=== PATIENT | female | born 1945 | race Caucasian/White ===

== ENCOUNTER → 2023-12-02 08:03 | Outpatient (REF) | payer MEDICARE, OTHER, SELFPAY | LOC: MRI 08:03 | PROVIDERS: ATTENDING PHYSICIAN Internal Medicine Rheumatology; FAMILY PHYSICIAN Family Medicine | DX: M05.879 Other rheumatoid arthritis with rheumatoid factor of unspecified ankle and foot (principal) | CPT/HCPCS: 73721 ==

== ENCOUNTER → 2024-02-28 09:42 | Outpatient (REF) | payer MEDICARE, OTHER, SELFPAY ==
[2024-02-28 11:07] LABS: % Eosinophils 3.4 % (0-6); % Immature Granulocytes 0.1 % (0-0.5); % Lymphocytes 46.9 % (20.5-51.1); % Monocytes 12.4 % (1.7-9.3); % Neutrophils 36.2 % (42.2-75.2); Absolute Basophils 0.1 10^3/uL (0-0.2); Absolute Eosinophils 0.2 10^3/uL (0-0.7); Absolute Lymphocytes 3.3 10^3/uL (1.2-3.4); Absolute Monocytes 0.9 10^3/uL (0.1-0.6); Absolute Neutrophils 2.6 10^3/uL (1.4-6.5); Hematocrit 38.5 % (37.0-47.0); Mean Corp Hgb Conc. 33.8 g/dL (33.0-37.0); Mean Corpuscular Hgb 32.5 pg (27.0-31.0); Mean Corpuscular Volume 96.3 fL (81.0-99.0); Mean Platelet Volume 10.6 fL (7.4-10.4); Nucleated Red Blood Cells % 0 %; Platelet Count 222 10^3/uL (130-400); Red Cell Dist. Width 14.6 % (11.5-14.5); White Blood Cell Count 7.1 10^3/uL (4.8-10.8)
[2024-02-28 13:05] LABS: C-Reactive Protein < 5.00 mg/L (0.0-10.00)
[2024-02-28 13:09] LABS: ALT (SGPT) 23 U/L (0-35); AST (SGOT) 31 U/L (14-36); Albumin 4.3 g/dl (3.5-5.0); Alkaline Phosphatase 51 U/L (38-126); Blood Urea Nitrogen 17 mg/dl (7-17); Calcium 9.5 mg/dl (8.4-10.2); Carbon Dioxide 26 mmol/L (22-30); Chloride 104 mmol/L (98-107); Glucose 92 mg/dl (70-99); Sodium 136 mmol/L (135-145); Total Bilirubin 1.2 mg/dl (0.2-1.3); Total Protein 6.7 g/dl (6.3-8.2); eGFR > 60.00
== END ==
LOC: REG 09:42
PROVIDERS: ATTENDING PHYSICIAN Internal Medicine Rheumatology; FAMILY PHYSICIAN Family Medicine
DX: M05.9 Rheumatoid arthritis with rheumatoid factor, unspecified (principal); Z51.81 Encounter for therapeutic drug level monitoring
CPT/HCPCS: 36415; 80053; 85025; 86140

== ENCOUNTER → 2024-06-11 11:22 | Outpatient (REF) | payer MEDICARE, OTHER, SELFPAY ==
[2024-06-11 12:43] LABS: Hematocrit 43.7 % (37.0-47.0); Hemoglobin 14.9 g/dL (12.0-16.0); Mean Corp Hgb Conc. 34.1 g/dL (33.0-37.0); Mean Corpuscular Hgb 33.6 pg (27.0-31.0); Mean Corpuscular Volume 98.6 fL (81.0-99.0); Mean Platelet Volume 10.4 fL (7.4-10.4); Platelet Count 276 10^3/uL (130-400); Red Blood Cell Count 4.43 10^6/uL (4.20-5.40); Red Cell Dist. Width 12.8 % (11.5-14.5); White Blood Cell Count 10.7 10^3/uL (4.8-10.8)
[2024-06-11 13:19] LABS: % Basophils 0.9 % (0-2); % Eosinophils 2.5 % (0-6); % Immature Granulocytes 0.3 % (0-0.5); % Lymphocytes 45.1 % (20.5-51.1); % Monocytes 15.7 % (1.7-9.3); % Neutrophils 35.5 % (42.2-75.2); Absolute Basophils 0.1 10^3/uL (0-0.2); Absolute Eosinophils 0.3 10^3/uL (0-0.7); Absolute Lymphocytes 4.8 10^3/uL (1.2-3.4); Absolute Monocytes 1.7 10^3/uL (0.1-0.6); Absolute Neutrophils 3.8 10^3/uL (1.4-6.5); Nucleated Red Blood Cells % 0 %
[2024-06-11 13:37] LABS: ALT (SGPT) 22 U/L (0-35); AST (SGOT) 29 U/L (14-36); Albumin 4.6 g/dl (3.5-5.0); Alkaline Phosphatase 70 U/L (38-126); Blood Urea Nitrogen 21 mg/dl (7-17); Calcium 10.3 mg/dl (8.4-10.2); Carbon Dioxide 29 mmol/L (22-30); Chloride 99 mmol/L (98-107); Glucose 100 mg/dl (70-99); Potassium 5.3 mmol/L (3.5-5.1); Sodium 140 mmol/L (135-145); Total Bilirubin 0.7 mg/dl (0.2-1.3); eGFR > 60.00
[2024-06-11 13:39] LABS: C-Reactive Protein < 5.00 mg/L (0.0-10.00)
== END ==
LOC: REG 11:22
PROVIDERS: ATTENDING PHYSICIAN Internal Medicine Rheumatology; FAMILY PHYSICIAN Student in an Organized Health Care Education/Training Program
DX: M05.9 Rheumatoid arthritis with rheumatoid factor, unspecified (principal); Z51.81 Encounter for therapeutic drug level monitoring
CPT/HCPCS: 36415; 80053; 85025; 86140

== ENCOUNTER → 2024-07-04 10:20 | Outpatient (REF) | payer MEDICARE, OTHER, SELFPAY ==
[2024-07-04 11:08] LABS: Hematocrit 41.2 % (37.0-47.0); Hemoglobin 14.2 g/dL (12.0-16.0); Mean Corp Hgb Conc. 34.5 g/dL (33.0-37.0); Mean Corpuscular Hgb 33.6 pg (27.0-31.0); Mean Corpuscular Volume 97.6 fL (81.0-99.0); Platelet Count 310 10^3/uL (130-400); Red Blood Cell Count 4.22 10^6/uL (4.20-5.40); White Blood Cell Count 8.5 10^3/uL (4.8-10.8)
[2024-07-04 11:24] LABS: % Basophils 0.8 % (0-2); % Eosinophils 2.5 % (0-6); % Immature Granulocytes 0.2 % (0-0.5); % Lymphocytes 52.2 % (20.5-51.1); % Monocytes 9.5 % (1.7-9.3); % Neutrophils 34.8 % (42.2-75.2); Absolute Basophils 0.1 10^3/uL (0-0.2); Absolute Eosinophils 0.2 10^3/uL (0-0.7); Absolute Lymphocytes 4.5 10^3/uL (1.2-3.4); Absolute Monocytes 0.8 10^3/uL (0.1-0.6); Nucleated Red Blood Cells % 0 %
[2024-07-04 11:29] LABS: Erythrocyte Sed Rate 11 mm/hour (0-20)
[2024-07-04 11:48] LABS: ALT (SGPT) 60 U/L (0-35); AST (SGOT) 49 U/L (14-36); Albumin 4.6 g/dl (3.5-5.0); Alkaline Phosphatase 71 U/L (38-126); Blood Urea Nitrogen 22 mg/dl (7-17); Calcium 9.9 mg/dl (8.4-10.2); Carbon Dioxide 25 mmol/L (22-30); Chloride 100 mmol/L (98-107); Glucose 98 mg/dl (70-99); Potassium 4.5 mmol/L (3.5-5.1); Sodium 139 mmol/L (135-145); Total Protein 6.9 g/dl (6.3-8.2); eGFR > 60.00
[2024-07-04 11:57] LABS: C-Reactive Protein < 5.00 mg/L (0.0-10.00)
== END ==
LOC: REG 10:20
PROVIDERS: Internal Medicine Endocrinology, Diabetes & Metabolism; ATTENDING PHYSICIAN Specialist; FAMILY PHYSICIAN Student in an Organized Health Care Education/Training Program
DX: R19.4 Change in bowel habit (principal)
CPT/HCPCS: 36415; 80053; 84443; 85025; 85652; 86140

== ENCOUNTER → 2024-07-05 12:39 | Outpatient (REF) | payer MEDICARE, OTHER, SELFPAY | LOC: REG 12:39 | PROVIDERS: ATTENDING PHYSICIAN Specialist | DX: R19.4 Change in bowel habit (principal) | CPT/HCPCS: 83993; 87324; 87449 ==

== ENCOUNTER → 2024-07-09 06:34 | Day surgery (SDC) | payer MEDICARE, OTHER, SELFPAY | LOC: GI 06:34 | PROVIDERS: ATTENDING PHYSICIAN Specialist | DX: R19.4 Change in bowel habit (principal); K57.30 Diverticulosis of large intestine without perforation or abscess without bleeding; K51.90 Ulcerative colitis, unspecified, without complications; K52.9 Noninfective gastroenteritis and colitis, unspecified | CPT/HCPCS: 45380; 88305 ==

== ENCOUNTER → 2024-08-23 06:27 | Outpatient (REF) | payer MEDICARE, OTHER, SELFPAY | LOC: REG 06:27 | PROVIDERS: ATTENDING PHYSICIAN Specialist; FAMILY PHYSICIAN Family Medicine | DX: R19.7 Diarrhea, unspecified (principal) | CPT/HCPCS: 83993; 87045; 87046; 87324; 87328; 87329; 87427; 87449 ==

== ENCOUNTER 2024-08-24 11:43 | Emergency (ER) | payer MEDICARE, OTHER, SELFPAY ==
[2024-08-24 11:45] VITALS: BP 150/93
--- NOTE | 2024-08-24 12:21 | ED.GENMED ---
History of Present Illness
General
Chief Complaint: Head Injury
Time Seen by Provider: 08/24/24 11:52
History of Present Illness
History of Present Illness:
71-year-old female presents the emergency department for evaluation of a large laceration to the left parietal scalp, she slipped and fell into a door frame. Denies any headache or vision changes at this time. Does not take anticoagulants. Last
tetanus is unknown
Past History
Past History
ED Past Medical History: GERD and Other (RA, sarcoidosis)
ED Past Surgical History: Other
Social History
Tobacco: Former smoker
Drug: None
Personal:
Living: with family
Employment: Retired
Family History
Family History: Other (brother had gout)
Review of Systems
Review of Systems
Allergies reviewed?: Yes
All Other Systems: ROS reviewed and negative except as documented in HPI and ROS
Phy Exam
Physical Exam
Physical Exam:
GEN: Well appearing, NAD, WDWN
HEENT: Large 14 cm curvilinear laceration to the left parietal scalp, full-thickness oral mucosa moist, no scleral icterus, no nasal congestion
Cardiac: Regular rate
Lung: No respiratory distress, no tachypnea
MSK: No gross deformity or injuries
Skin: Good color, no pallor or jaundice, no rashes
Neuro: AO x3; CN II-XII grossly intact. BUE strength 5/5 in all woods, sensation intact and symmetric. BLE strength 5/5 in all woods, sensation intact and symmetric
Psych: Calm, cooperative
Course
Vital Signs
Initial and Last Documented VS:
Initial Vital Signs
Temp Pulse Resp BP Pulse Ox
97.6 F 80 16 150/93 98
08/24/24 11:45 08/24/24 11:45 08/24/24 11:45 08/24/24 11:45 08/24/24 11:45
Last Documented Vital Signs
Temp Pulse Resp BP Pulse Ox
97.6 F 80 16 150/93 98
08/24/24 11:45 08/24/24 11:45 08/24/24 11:45 08/24/24 11:45 08/24/24 11:45
Procedures
Laceration Closure
Left Scalp:
Status of Wound: clean
Size of Wound in cm: 12
Description of Wound Edges: sharp and flap-well vascularized
Preparation: cleaned with soap & water
Anesthesia: 1% Lidocaine with epi
Wound exploration: explored to base- no FB
Type of Closure: single layer closure
Skin Closure Material: skin mari
Number of sutures: 11
MDM/Problems Addressed
MDM/Problems Addressed:
Patient is neurologically intact and there is no sign of depressed skull fracture. No indication for CT of the head
*Critical Care Note
Total Time (30-74mins, 75-104mins- exclusive of procedures): Not Applicable
ED Attending Note
-
Portions of this chart may have been created with voice recognition software.� Occasional wrong word or��sound alike� substitutions may have occurred due to the inherent limitations of voice recognition software.
Discharge Plan
Departure
Patient Disposition: Home (Routine Discharge)
Date of Disposition: 08/24/24
Time of Disposition: 12:21
Patient with high blood pressure during this ER visit?: No
Discharge Problem:
Laceration of scalp
Instructions: Laceration Repair With Mari (DC)
Prescriptions:
No Action
Folic Acid 0.8 MG Tablet
0.8 mg PO DAILY Qty: 0
estradiol 1 EACH patch weekly
1 ea transdermal TH
mesalamine 800 MG tablet,delayed release (DR/EC)
1,600 mg PO TID
methotrexate sodium 2.5 MG tablet
15 mg PO MO
diclofenac sodium 75 MG tablet,delayed release (DR/EC)
75 mg PO BID
valganciclovir 450 MG tablet
900 mg PO Q12 Qty: 42 0RF
Rx Instructions:
take 2 tabs (900mg) every 12 hours x 3 weeks
pantoprazole 40 MG tablet,delayed release (DR/EC)
40 mg PO DAILY Qty: 30 0RF
Activity Restrictions/Additional Instructions:
Keep wound dry until tomorrow, then wash gently with soap and water
Staple removal in 5-7 days
Interventions
Interventions:
*Risk Screen - Suicide Last Done: 08/24/24 11:48
*Neglect/Abuse Screening Last Done: 08/24/24 11:48
*ED COVID-19 Vaccine History Last Done: 08/24/24 11:48
Discharge Date and Time
Print Language: SWEDISH
[2024-08-24 12:25] VITALS: BP 142/72
== END 2024-08-24 12:25 | disposition home or self-care (01) ==
LOC: EMR 11:43
PROVIDERS: EMERGENCY PHYSICIAN Student in an Organized Health Care Education/Training Program; FAMILY PHYSICIAN Family Medicine
DX: S01.01XA Laceration without foreign body of scalp, initial encounter (principal); W01.198A Fall on same level from slipping, tripping and stumbling with subsequent striking against other object, initial encounter; K21.9 Gastro-esophageal reflux disease without esophagitis; Z87.891 Personal history of nicotine dependence
CPT/HCPCS: 12004; 99282

== ENCOUNTER → 2024-09-13 11:46 | Outpatient (REF) | payer MEDICARE, OTHER, SELFPAY | LOC: REG 11:46 | PROVIDERS: ATTENDING PHYSICIAN Specialist; FAMILY PHYSICIAN Student in an Organized Health Care Education/Training Program | DX: R19.7 Diarrhea, unspecified (principal) | CPT/HCPCS: 83993; 87045; 87046; 87324; 87328; 87329; 87427; 87449; 89055 ==

== ENCOUNTER → 2024-10-08 14:11 | Outpatient (REF) | payer MEDICARE, OTHER, SELFPAY | LOC: REG 14:11 | PROVIDERS: ATTENDING PHYSICIAN Specialist; FAMILY PHYSICIAN Family Medicine | DX: R19.7 Diarrhea, unspecified (principal) | CPT/HCPCS: 87324; 87328; 87329; 87449 ==

== ENCOUNTER 2024-10-15 18:24 | Inpatient (IN) | payer MEDICARE, OTHER, SELFPAY ==
[2024-10-15 11:33] VITALS: BP 106/74
--- NOTE | 2024-10-15 11:39 | ED.GENMED ---
ED Provider Triage
<Antonella Fonseca PA-C - Last Filed: 10/15/24 11:43>
-
Patient seen by provider in Triage?: Seen in Triage
Attestation: A medical screening examination has been initiated by a qualified medical provider. Based on the assessment performed at this time, it has been determined that an emergent medical condition may exist and the patient has been informed
that further medical evaluation and possible additional diagnostic testing may be needed.
HPI: 79yoF here with rectal bleeding. Had two episodes of BRBPR this morning. First episode was just on the toilet paper, second episode blood was in the toilet bowl. C/o R sided abd pain. Hx of ulcerative colitis. Recently treated for C.diff and
finished abx on 10/04.
GENERAL: Alert , in no apparent distress
EYE: No visual abnormalities.
NECK: Trachea midline
ENT: No visible abnormalities.
LUNGS: No acute respiratory distress
NEUROLOGICAL: Alert and oriented
SKIN: Skin intact. No visible changes.
MUSCULOSKELETAL: Moving extremities normally
PSYCH: Normal and appropriate interaction.
This is a medical evaluation conducted in person to initiate diagnostic evaluation and provide initial therapeutics. Please see further documentation by the treating clinician.
Abdominal labs, CRP, coags, type and screen, and CT abdomen ordered.
History of Present Illness
<Antonella Fonseca PA-C - Last Filed: 10/15/24 11:43>
General
Chief Complaint: Rectal Bleeding
Time Seen by Provider: 10/15/24 14:43
<Amaury Cameron PA-C - Last Filed: 10/15/24 15:59>
General
Source: patient and records
History of Present Illness
History of Present Illness:
79-year-old female with past medical history of previous gastric ulcer presenting to the emergency department after she has been dealing with diarrhea for the last 2-1/2 months noting that she often has upwards of 10-15 episodes of watery loose
stool per day. She was at her GI office with Dr. Che today when she felt the urge to have a bowel movement, went to the bathroom and noted sara blood. She states this is the first time that she noticed any bleeding. Patient has had 4 separate
stool studies done since late June with all of these tests reportedly coming back negative although she does note she was started on an antibiotic for presumed C. difficile about 2 weeks ago which she finished but without resolution of
symptoms. Patient denies any fevers, chills, rigors and currently states she is symptom-free/pain-free. She denies any anticoagulant use. Denies any cigarettes or tobacco. No known family history of GI related issues.
Past History
<Antonella Fonseca PA-C - Last Filed: 10/15/24 11:43>
Past History
ED Past Medical History: GERD and Other (RA, sarcoidosis)
ED Past Surgical History: Other
Social History
Tobacco: Former smoker
Drug: None
Personal:
Living: with family
Employment: Retired
Family History
Family History: Other (brother had gout)
<Amaury Cameron PA-C - Last Filed: 10/15/24 15:59>
Past History
ED Past Surgical History: Cholecystectomy, Gynecological and Orthopedic
Social History
Alcohol: None
Review of Systems
<Amaury Cameron PA-C - Last Filed: 10/15/24 15:59>
Review of Systems
All Other Systems: ROS reviewed and negative except as documented in HPI and ROS
Phy Exam
<Amaury Cameron PA-C - Last Filed: 10/15/24 15:59>
Physical Exam
Physical Exam:
GENERAL: Alert , in no apparent distress
EYE: clear conjunctiva b/l
HEAD: NCAT
ENT: o/p clr, mmm.
CARDIAC: Regular rate and rhythm .
LUNGS: Clear breath sounds bilaterally, no acute respiratory distress, no wheezes/rales/rhonchi
ABDOMEN: Soft, mild generalized tenderness on palpation, no r/g, no cvat
NEUROLOGICAL: Alert and oriented
SKIN: Warm and dry, skin intact.
MUSCULOSKELETAL: No edema, well perfused.
PSYCH: Normal and appropriate interaction.
Scores
<Amaury Cameron PA-C - Last Filed: 10/15/24 15:59>
Heart Failure Risk
Heart Failure Risk Score: Not Applicable
Heart Score for Chest Pain Patients
STEMI patient?: Not applicable
Withdrawal Assessment of Alcohol
Withdrawal Assessment Completed?: Not applicable
Course
<Antonella Fonseca PA-C - Last Filed: 10/15/24 11:43>
Orders/Labs/Results
Orders:
Orders
10/15/24 11:40
CT Abd/pel W Iv And Oral Contr Urgent
Comment:
Reason For Exam: R sided abd pain, rectal bleeding
Iohexol [Omnipaque] See Protocol PO NOW STA
10/15/24 11:43
Type+Screen Urgent
Complete Blood Count/With Diff Urgent
Comprehensive Metabolic Panel Urgent
Erythrocyte Sed Rate Urgent
Comment: ADD ON
Lipase Urgent
Manual Differential Urgent
Prothrombin Time Urgent
10/15/24 14:51
Add On- LAB Urgent
Tests Added?: esr
10/15/24 15:02
0.9% Sodium Chloride 1000 ml [Nss] 1,000 ml IV BOLUS
10/15/24 15:18
ABO2 Urgent
BBK Wristband Number:
Associate notified that ABO2 has been ordered: [id number]
Date: 10/15/24
Time: 12:10
Behavioral Modification Assistant ID: [id number]
CRP [C-Reactive Protein] Urgent
Lactic Acid Q4H
Comment: CANCEL 2nd LACTIC ACID IF 1st LACTIC ACID IS LESS THAN 2
10/15/24 19:00
Lactic Acid Q4H
Comment: CANCEL 2nd LACTIC ACID IF 1st LACTIC ACID IS LESS THAN 2
Abnormal Lab Results
10/15/24
11:43
WBC 13.9 H 10^3/uL
(4.8-10.8)
MCH 31.4 H pg
(27.0-31.0)
Segmented Neutrophils 15 L %
(42-75)
Band Neutrophils 18 H %
(0-3)
Monocytes (Manual) 19 H %
(2-9)
ESR 24 H mm/hour
(0-20)
Sodium 133 L mmol/L
(135-145)
Chloride 97 L mmol/L
(98-107)
Glucose 123 H mg/dl
(70-99)
Total Protein 6.0 L g/dl
(6.3-8.2)
Albumin 3.4 L g/dl
(3.5-5.0)
10/15/24 11:43
10/15/24 11:43
Vital Signs
Initial and Last Documented VS:
Initial Vital Signs
Temp Pulse Resp BP Pulse Ox
98.1 F 99 17 106/74 95
10/15/24 11:33 10/15/24 11:33 10/15/24 11:33 10/15/24 11:33 10/15/24 11:33
Last Documented Vital Signs
Temp Pulse Resp BP Pulse Ox
98.1 F 79 18 117/54 100
10/15/24 11:33 10/15/24 15:22 10/15/24 15:22 10/15/24 15:22 10/15/24 15:22
<Amaury Cameron PA-C - Last Filed: 10/15/24 15:59>
Orders/Labs/Results
Orders:
Orders
10/15/24 11:40
CT Abd/pel W Iv And Oral Contr Urgent
Comment:
Reason For Exam: R sided abd pain, rectal bleeding
Iohexol [Omnipaque] See Protocol PO NOW STA
10/15/24 11:43
Type+Screen Urgent
Complete Blood Count/With Diff Urgent
Comprehensive Metabolic Panel Urgent
Erythrocyte Sed Rate Urgent
Comment: ADD ON
Lipase Urgent
Manual Differential Urgent
Prothrombin Time Urgent
10/15/24 14:51
Add On- LAB Urgent
Tests Added?: esr
10/15/24 15:02
0.9% Sodium Chloride 1000 ml [Nss] 1,000 ml IV BOLUS
10/15/24 15:18
ABO2 Urgent
BBK Wristband Number:
Associate notified that ABO2 has been ordered: [id number]
Date: 10/15/24
Time: 12:10
Behavioral Modification Assistant ID: [id number]
CRP [C-Reactive Protein] Urgent
Lactic Acid Q4H
Comment: CANCEL 2nd LACTIC ACID IF 1st LACTIC ACID IS LESS THAN 2
10/15/24 19:00
Lactic Acid Q4H
Comment: CANCEL 2nd LACTIC ACID IF 1st LACTIC ACID IS LESS THAN 2
Abnormal Lab Results
10/15/24
11:43
WBC 13.9 H 10^3/uL
(4.8-10.8)
MCH 31.4 H pg
(27.0-31.0)
Segmented Neutrophils 15 L %
(42-75)
Band Neutrophils 18 H %
(0-3)
Monocytes (Manual) 19 H %
(2-9)
ESR 24 H mm/hour
(0-20)
Sodium 133 L mmol/L
(135-145)
Chloride 97 L mmol/L
(98-107)
Glucose 123 H mg/dl
(70-99)
Total Protein 6.0 L g/dl
(6.3-8.2)
Albumin 3.4 L g/dl
(3.5-5.0)
10/15/24 11:43
10/15/24 11:43
Vital Signs
Initial and Last Documented VS:
Initial Vital Signs
Temp Pulse Resp BP Pulse Ox
98.1 F 99 17 106/74 95
10/15/24 11:33 10/15/24 11:33 10/15/24 11:33 10/15/24 11:33 10/15/24 11:33
Last Documented Vital Signs
Temp Pulse Resp BP Pulse Ox
98.1 F 79 18 117/54 100
10/15/24 11:33 10/15/24 15:22 10/15/24 15:22 10/15/24 15:22 10/15/24 15:22
<Aamury Cameron PA-C - Last Filed: 10/15/24 15:59>
MDM/Problems Addressed
Differential Diagnosis Includes:
Pseudomembranous colitis, ulcerative colitis, Crohn's disease, other bacterial diarrhea, given duration of illness less concern for viral gastroenteritis, electrolyte derangement
MDM/Problems Addressed:
79-year-old female presenting to the ER for evaluation of 2-1/2 months of diarrhea, symptoms not much worse however today did notice sara blood without any stool when she went to have a bowel movement. She is not on any anticoagulants. Currently
hemodynamically stable. Generalized tenderness on exam. Labs and CT were ordered from triage. Patient has a near 14,000 leukocytosis. She has a bandemia of 18%. Electrolytes are unremarkable. I reviewed patient's outpatient stool studies which
were negative for C. difficile as well as were negative on culture for Shigella and E. coli. CT results pending. Disposition pending but anticipate admission given symptoms.
<Amaury Cameron PA-C - Last Filed: 10/15/24 15:59>
*Radiology
Radiology exam reviewed: radiology read reviewed
*Pulse Oximetry
Patient hypoxic: no
*Critical Care Note
Total Time (30-74mins, 75-104mins- exclusive of procedures): Not Applicable
Data Reviewed
Review of Other/Old Records Reveals: Labs and Records
<Amaury Cameron PA-C - Last Filed: 10/15/24 15:59>
Patient Management
Discussion with other providers: Hospitalist and Laundry Presser
Escalation/DeEscalation of care consider admission/obs:
Patient CT scan ultimately shows the following:
IMPRESSION:
1. SEVERE ACUTE COLITIS in the ascending and transverse colon. Moderate acute on chronic colitis in the descending colon, sigmoid colon, and rectum. Diagnostic possibilities are (1) severe acute infectious colitis (possibly C. difficile colitis)
or (2) acute on chronic ulcerative colitis.
2. Cecal bascule without evidence for colonic obstruction.
3. Mild small bowel distention suggesting an ileus.
4. 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
5. Suspected acute infarct in the spleen.
6. Mild intrahepatic and extrahepatic biliary dilatation.
7. Previous cholecystectomy and hysterectomy.
8. 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
I reviewed these results with the patient at length and provided her with a printout of the CT report. Given these findings combined with patient's lab abnormalities will admit for further evaluation. Lactic acid ordered in addition to labs
previously sent. Will defer antibiotics to hospitalist and GI team. Hospitalist team accepts for continued evaluation and treatment.
ED Attending Note
<Antonella Fonseca PA-C - Last Filed: 10/15/24 11:43>
-
Portions of this chart may have been created with voice recognition software.� Occasional wrong word or��sound alike� substitutions may have occurred due to the inherent limitations of voice recognition software.
Discharge Plan
Departure
Patient Disposition: Admit
Date of Disposition: 10/15/24
Time of Disposition: 15:01
Presentation/result/management discussed w/ accepting MD/DO: Hospitalist
Discharge Problem:
Colitis, Splenic infarct, Infarction of kidney
Prescriptions:
No Action
methotrexate sodium 2.5 MG tablet
10 mg PO TU
diclofenac sodium 75 MG tablet,delayed release (DR/EC)
75 mg PO BID
trazodone 50 mg Tablet
50 mg PO HSPRN PRN (Reason: sleep)
valsartan-hydrochlorothiazide 80-12.5 mg Tablet
0.5 tab PO DAILY
folic acid 1 mg Tablet
1 mg PO DAILY
Interventions
Interventions:
*Risk Screen - Suicide Last Done: 10/15/24 11:35
*General Assessment Last Done: 10/15/24 11:35
*Neglect/Abuse Screening Last Done: 10/15/24 11:35
*ED COVID-19 Vaccine History Last Done: 10/15/24 11:35
[id number] Assessment Last Done: 10/15/24 15:31
ED- Cardiac Assessment Last Done: 10/15/24 15:31
ED- Pulmonary Assessment Last Done: 10/15/24 15:31
Discharge Date and Time
Print Language: [place]
[2024-10-15] MEDS: OMNIPAQUE 50 ML PO (11:49)
[2024-10-15 12:12] LABS: Hematocrit 42.5 % (37.0-47.0); Hemoglobin 14.1 g/dL (12.0-16.0); Mean Corp Hgb Conc. 33.2 g/dL (33.0-37.0); Mean Corpuscular Hgb 31.4 pg (27.0-31.0); Mean Corpuscular Volume 94.7 fL (81.0-99.0); Mean Platelet Volume 9.5 fL (7.4-10.4); Platelet Count 373 10^3/uL (130-400); Red Blood Cell Count 4.49 10^6/uL (4.20-5.40); Red Cell Dist. Width 13.2 % (11.5-14.5); White Blood Cell Count 13.9 10^3/uL (4.8-10.8)
[2024-10-15 12:20] LABS: INR 0.95
[2024-10-15 12:23] LABS: Absolute Neutrophils -Man Diff 4.5 10^3/uL (1.4-6.5); Atypical Lymphocytes 4 %; Band Neutrophils 18 % (0-3); Eosinophils 3 % (0-6); Lymphocytes 40 % (20-51); Metamyelocytes 1 % (-); Monocytes 19 % (2-9); Platelets Checked Yes; Segmented Neutrophils 15 % (42-75)
[2024-10-15 12:24] LABS: Normal RBC Morphology Yes
[2024-10-15 12:25] LABS: Total Cells Counted 100
[2024-10-15 12:28] LABS: ALT (SGPT) 15 U/L (0-35); AST (SGOT) 19 U/L (14-36); Albumin 3.4 g/dl (3.5-5.0); Alkaline Phosphatase 75 U/L (38-126); Blood Urea Nitrogen 17 mg/dl (7-17); Carbon Dioxide 29 mmol/L (22-30); Chloride 97 mmol/L (98-107); Glucose 123 mg/dl (70-99); Lipase 57 U/L (23-300); Potassium 3.8 mmol/L (3.5-5.1); Sodium 133 mmol/L (135-145); Total Bilirubin 0.7 mg/dl (0.2-1.3); eGFR > 60.00
[2024-10-15 14:14] VITALS: BP 150/69
[2024-10-15] MEDS: NSS 1000 IV (15:12)
[2024-10-15 15:22] VITALS: BP 117/54
--- NOTE | 2024-10-15 15:33 | CON.GI ---
Addendum entered and electronically signed by Ben Che MD 10/15/24 17:30:
I saw and examined the patient.
The OPERATIONS AND MAINTENANCE MANAGER or PA's note was reviewed and I agree with the note.
Comment: 79yo female known to me as outpatient and had office visit with me today, but reported rectal bleeding and was sent to ER. She has hx UC and RA doing well on Cimzia until this year. Over last several months has had diarrhea, tried on
budesonide, but she did not tolerate it with vomiting. Was put on prednisone taper. C diff was Ag positive, toxin negative, which I treated with Dificid even though this was possible colonization, since she wasn't improving on prednisone. She had
repeat C diff negative 11/08. I discussed flex sig, but she cancelled since she was dealing with tool abscess and thought that had something to do with her sx.
In ER, WBC elevated 13.9 with 18% bands. CT shows severe acute colitis in ascending/transverse colon, moderate colitis in L colon and acute infarct in L kidney and suspected infarct spleen.
REC:
NPO, abx, IVF
Check stool C diff again, and if negative start IV steroids
Also recommend anticoagulation given her severe IBD and infarct on CT, while monitoring her bleeding. If bleeding profuse, will need to stop anticoagulation
If she responds to IV steroids, I can discuss swithcing biologics as outpt. She did well with remicade and cimzia in past, so maybe Humira is a good option. Others include Entyvio (though that would not treat her RA) or Skyrizi
I would not use Rinvoq given her clot risk.
Original Note:
Consultation
-
Date/Time Consultation Requested: 10/15/24 1500
Date/Time Consultation Performed: 10/15/24- 0
Requesting Provider: Amaury Villa PA-C
Performing Provider: [place] Devries, Ben Che MD
Reason for Consultation: diarrhea, rectal bleeding
Medical History
Chief Complaint / HPI
Chief Complaint: rectal bleeding
History of Present Illness:
Pt is a 79yo with hx long standing RA on multiple medication, H pylori, skin CA, osteoporosis, GERD with ulcerative segovia colitis since 2020. She recall being on Mesalamine in past and Remicade for RA but did not tolerate with rash. She recently
has been on Cimzia but stopped about 2 months ago as was consider change on therapy. She states she began with diarrhea about 8-10 stools per day about 2 months ago. She initially was treated with steroid taper. She then completed stool cultures
neg 09/13 with c-diff ag + tox neg and pt was placed on Dificid for 10 days. Pt also admits to abx for tooth issue. She continued with symptoms repeat 10/08 was neg c-diff. She was scheduled to see Dr. Che today and noted large bloody stool and
came to ER instead of office visit. On admission she is noted with CT with severe acute colitis with concern for c-diff vs chronic UC, cecal bascule without obstruction, mild SB ileus with acute infarct of left kidney appear secondary to occlusion,
suspected acute infarct of spleen mild intra and extra hepatic biliary dilation, prior girma and hysterectomy, mod DDD. Labs notable for WBC 13,900, hbg 14,100, Na 133. No recent travel or sick contacts.
At this time patient admits to nausea without vomiting and diarrhea that was blood today. She also admits to some right lower abdominal pain. She has had about 8-10 lbs wt loss in last 2 months. She denies dysphagia, GERD, constipation or
black stools. Last colonoscopy [facility] 07/09/24 with [facility] ulcerative colitis unchanged tortuous colon. bx active colitis mild in sigmoid. Last EGD [facility] 01/2023 normal esophagus stomach and duodenum bx no metaplasia, no eosinophilic esophagitis.
Past Medical History
Past Medical History: Cancer (basal cell face) and Other (RA, HH, GERD, gastritis, osteoporosis, prior covid, ulcerative segovia colitis 2020, prior H pylori )
Social History
Tobacco: Non-Smoker
Alcohol: None
Drug: None
Personal:
Living: With Family
Employment: Retired
Family History
Family History: Other (no family hx UC or crohns )
Allergies / Home Medications
Allergy/AdvReac Type Severity Reaction Status Date / Time
infliximab Allergy Unknown Rash Verified 10/15/24 11:32
homatropine Allergy Itching Verified 10/15/24 11:32
[From Hycodan (with
homatropin)]
hydrocodone Allergy Itching Verified 10/15/24 11:32
[From Hycodan (with
homatropin)]
morphine Allergy Itching Verified 10/15/24 11:32
naproxen [From Naprosyn] Allergy Rash Verified 10/15/24 11:32
promethazine Allergy NAUSEA/VOMI Verified 10/15/24 11:32
TING
�Medication �Instructions �Recorded
diclofenac sodium 75 mg 75 mg PO BID Pain 06/02/21
tablet,delayed release
methotrexate sodium 2.5 mg tablet 10 mg PO TU Autoimmune disorder 06/02/21
folic acid 1 mg tablet 1 mg PO DAILY 10/15/24
trazodone 50 mg tablet 50 mg PO HSPRN PRN sleep 10/15/24
valsartan 80 0.5 tab PO DAILY 10/15/24
mg-hydrochlorothiazide 12.5 mg
tablet
Review of Systems
-
History Source: Patient and Family
Constitutional: Reports Weight Loss (8-10 lbs )
EENT: Reports No Symptoms
Respiratory: Reports No Symptoms
Cardiac: Reports No Symptoms
Abdomen/GI: Reports Abdominal Pain, Nausea, Diarrhea and Bloody Stools
: Reports No Symptoms
Musculoskeletal: Reports Other (chronic pain with RA)
Skin: Reports No Symptoms
Neurological: Reports No Symptoms and Weakness
Endocrine: Reports No Symptoms
Hematologic/Lymphatic: Reports Bleeding
Vital Signs
Temp Pulse Resp BP Pulse Ox
98.1 F 79 18 117/54 100
10/15/24 11:33 10/15/24 15:22 10/15/24 15:22 10/15/24 15:22 10/15/24 15:22
Physical Exam
Exam
General: Well Developed, Well Nourished and No Apparent Distress
HEENT: Normocephalic and Anicteric
Respiratory: Clear
Cardiac: Regular Rhythm
GI: Soft, Non Distended and Tender (RLQ )
Rectal: Red
Musculoskeletal: No Clubbing and No Cyanosis
Skin: Warm and Dry
Neuro: Awake, Alert and AO x 3
Psych: Calm
Results
WBC 13.9 10^3/uL (4.8-10.8) H 10/15/24 11:43
Hgb 14.1 g/dL (12.0-16.0) 10/15/24 11:43
Hct 42.5 % (37.0-47.0) 10/15/24 11:43
MCV 94.7 fL (81.0-99.0) 10/15/24 11:43
Plt Count 373 10^3/uL (130-400) 10/15/24 11:43
PT 13.0 Sec (11.4-14.6) 10/15/24 11:43
INR 0.95 10/15/24 11:43
Sodium 133 mmol/L (135-145) L 10/15/24 11:43
Potassium 3.8 mmol/L (3.5-5.1) 10/15/24 11:43
Chloride 97 mmol/L (98-107) L 10/15/24 11:43
Carbon Dioxide 29 mmol/L (22-30) 10/15/24 11:43
BUN 17 mg/dl (7-17) 10/15/24 11:43
Creatinine 0.7 mg/dL (0.6-1.0) 10/15/24 11:43
Calcium 9.0 mg/dl (8.4-10.2) 10/15/24 11:43
Total Bilirubin 0.7 mg/dl (0.2-1.3) 10/15/24 11:43
AST 19 U/L (14-36) 10/15/24 11:43
ALT 15 U/L (0-35) 10/15/24 11:43
Alkaline Phosphatase 75 U/L (38-126) 10/15/24 11:43
Lipase 57 U/L (23-300) 10/15/24 11:43
Diagnostic Image Results:
10/15/24 CT Abd/pel W Iv And Oral Contr
1. SEVERE ACUTE COLITIS in the ascending and transverse colon. Moderate acute on chronic colitis in the descending colon, sigmoid colon, and rectum. Diagnostic possibilities are (1) severe acute infectious colitis (possibly C. difficile colitis)
or (2) acute on chronic ulcerative colitis.
2. Cecal bascule without evidence for colonic obstruction.
3. Mild small bowel distention suggesting an ileus.
4. 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
5. Suspected acute infarct in the spleen.
6. Mild intrahepatic and extrahepatic biliary dilatation.
7. Previous cholecystectomy and hysterectomy.
8. 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
Prior GI Procedures:
EGD: [facility] 01/2023 normal esophagus stomach and duodenum bx no metaplasia, no eosinophilic esophagitis.
Colonoscopy: [facility] 07/09/24 with [facility] ulcerative colitis unchanged tortuous colon. bx active colitis mild in sigmoid.
Assessment / Plan
-
Pt is a 79yo with hx long standing RA on multiple medication, H pylori, skin CA, osteoporosis, GERD with ulcerative segovia colitis since 2020. She recall being on Mesalamine in past and Remicade for RA but did not tolerate with rash. She recently
has been on Cimzia but stopped about 2 months ago as was consider change on therapy. She states she began with diarrhea about 8-10 stools per day about 2 months ago. She initially was treated with steroid taper. She then completed stool cultures
neg 09/13 with c-diff ag + tox neg and pt was placed on Dificid for 10 days. Pt also admits to abx for tooth issue. She continued with symptoms repeat 10/08 was neg c-diff. She was scheduled to see Dr. Che today and noted large bloody stool and
came to ER instead of office visit. On admission she is noted with CT with severe acute colitis with concern for c-diff vs chronic UC, cecal bascule without obstruction, mild SB ileus with acute infarct of left kidney appear secondary to occlusion,
suspected acute infarct of spleen mild intra and extra hepatic biliary dilation, prior girma and hysterectomy, mod DDD. Labs notable for WBC 13,900, hbg 14,100, Na 133. No recent travel or sick contacts.
-diarrhea/bloody stool
-hx Ulcerative segovia colitis- CT iwth severe acute colitis
-cecal bascule/ileus on CT
-CT with renal and splenic infarct
-RA with chronic joint pains
other med problems:
-hx girma
-h pylori
-osteoporosis
-GERD
-reaction with remicade in past
PLAN:
etiology of diarrhea and bleeding related to UC flare, c-diff, ischemic process vs other
reviewed with hospitalist for starting antibiotics
ok for low dose Lovenox daily with close monitor for bleeding- as high risk for clot with active colitis
plan for stool studies if neg consider steroid course
if not improving consider flex
add updated hepatitis B/C and TB testing
Dr. Che considering change in therapy--cannot get Rinvoq with hx thrombosis issue, rash in past with remicade
ideally therapy to cover RA and UC-- pt remains on methotrexate
ok for clear diet
add CRP, ESR and fecal kevin
-
-
Thank you for consultation and allowing me to participate in the patient's care. Please call the early childhood education worker GI physician during the after hours with any questions or concerns.
[2024-10-15 15:42] LABS: Erythrocyte Sed Rate 24 mm/hour (0-20)
--- NOTE | 2024-10-15 16:02 | HPS.HSE ---
Addendum entered and electronically signed by Edgar Rider MD 10/15/24 17:19:
I saw and examined the patient.
The CARBIDER or PA's note was reviewed and I agree with the note.
Comment:
This note serves as an addendum to the H&P by panelbeater GIA Ira Crump
79F HX UC segovia colitis , GERD pw diarrhea/bloody stool
Acute hematochezia
- POS CT iwth severe acute colitis
- Clear
- Empiric IV LVQ and Flagyl
- stool Cx
- add CRP, ESR and fecal kevin
- trend Hgb
- GI consulted
POS CT Renal and splenic infarct
- Clear by GI for LMEH DVT Px dose
- Cannot systemic AC due to hemaochezia
HX RA with chronic joint pains
DVT Px: LMWH DVT Px dose
Full code
IP TLM
Original Note:
Family Physician
-
Family Physician: Marcos Gan
Chief Complaint
-
bloody bowel movement
History of Present Illness
Patient is 79-year-old female with past medical history significant for hypertension and rheumatoid arthritis who presented to [facility] for evaluation of consistent diarrhea for 2.5 months and a bright red bowerl moevement this morning. Patient
stated prior to leaving for scheduled GI appointment with Dr. Che this morning she went to restroom to be sure bowels were clear to go and she sat down and felt like it was just water, when she looked she described output as all bright red and no
stool present. Patient states appetite has been fair and does not at least 10 pound weight loss in last 2.5 months. She denies any fever, chills, cough, shortness of breath, chest pain, palpitations, nausea, vomiting, constipation or urinary
symptoms.
Medical History
Past Medical History
Past Medical History: Reports Other
Additional Past Medical History:
bengin hypertension
rheumatoid arthritis
Hx basal cell carcinoma
Hx ulcerative colitis
Past Surgical History: Reports Other
Additional Past Surgical History:
total vaginal hysterectomy
cholecystectomy
right hip replacement
wrist fx repair
Social History
Tobacco: Former Smoker (quit 40 years ago)
Alcohol: None
Drug: None
Personal:
Living: With Family
Employment: Retired
Family History
Family History: Not pertinent
Allergies / Home Medications
Allergies reflects when Allergies were last updated in [employer].
Home Medications with original date entered in [employer]
Allergy/Medication List:
Allergies
Allergy/AdvReac Type Severity Reaction Status Date / Time
infliximab Allergy Unknown Rash Verified 10/15/24 11:32
homatropine Allergy Itching Verified 10/15/24 11:32
[From Hycodan (with
homatropin)]
hydrocodone Allergy Itching Verified 10/15/24 11:32
[From Hycodan (with
homatropin)]
morphine Allergy Itching Verified 10/15/24 11:32
naproxen [From Naprosyn] Allergy Rash Verified 10/15/24 11:32
promethazine Allergy NAUSEA/VOMI Verified 10/15/24 11:32
TING
Home Medications
diclofenac sodium 75 mg tablet,delayed release 75 mg PO BID Pain 06/02/21
methotrexate sodium 2.5 mg tablet 10 mg PO TU Autoimmune disorder 06/02/21
folic acid 1 mg tablet 1 mg PO DAILY 10/15/24
trazodone 50 mg tablet 50 mg PO HSPRN PRN sleep 10/15/24
valsartan 80 mg-hydrochlorothiazide 12.5 mg tablet 0.5 tab PO DAILY 10/15/24
Review of Systems
-
History Source: Patient
Constitutional: Reports No Symptoms
EENT: Reports No Symptoms
Respiratory: Reports No Symptoms
Cardiac: Reports No Symptoms
Abdomen/GI: Reports Diarrhea (for 2.5 months ) and Bloody Stools (1x today, bright red)
: Reports No Symptoms
Musculoskeletal: Reports No Symptoms
Skin: Reports No Symptoms
Neurological: Reports No Symptoms
Endocrine: Reports No Symptoms
Hematologic/Lymphatic: Reports No Symptoms
Psych: Reports No Symptoms
Physical Exam
Vital Signs
Vital Signs
Temp Pulse Resp BP Pulse Ox
98.1 F 79 18 117/54 100
10/15/24 11:33 10/15/24 15:22 10/15/24 15:22 10/15/24 15:22 10/15/24 15:22
Physical Exam
General: Well Developed, Well Nourished, No Apparent Distress, Comfortable and Conversant
HEENT: NormoCephalic, Moist mucous membranes, Atraumatic, PERRLA, [place] Conjunctivae, Ears Appear Normal and Hearing Impaired
Respiratory: Clear and Non Labored Respirations
Cardiac: S1/S2 and Regular Rhythm; No Murmur, Rub or Gallop
Breast: Deferred by me
GI: Soft, Non Tender, Non Distended and Normal Bowel Sounds; No Organomegaly
Rectal: Deferred by Provider
Genito-urinary: Deferred by me
Musculoskeletal: No Clubbing, No Cyanosis and No Edema
Skin: Warm and IV/Catheter Site; No Rash
Neuro: Awake, Alert, AO x 3 and Nonfocal/grossly intact
Hematologic/Lymphatic: No Lymphadenopathy
Psych: Calm and Intact Judgment/Insight
Laboratory Results
-
10/15/24 11:43
10/15/24 11:43
Laboratory Results
PT 13.0 Sec (11.4-14.6) 10/15/24 11:43
INR 0.95 10/15/24 11:43
Total Bilirubin 0.7 mg/dl (0.2-1.3) 10/15/24 11:43
AST 19 U/L (14-36) 10/15/24 11:43
ALT 15 U/L (0-35) 10/15/24 11:43
Alkaline Phosphatase 75 U/L (38-126) 10/15/24 11:43
Lipase 57 U/L (23-300) 10/15/24 11:43
Data Reviewed
-
CT Scan: Report Reviewed by me
Lab Data: Labs Reviewed by me
Impression/Plan
-
IMPRESSION/PLAN:
#Severe acute colitis
Abd/Pelvis CT: 1. SEVERE ACUTE COLITIS in the ascending and transverse colon. Moderate acute on chronic colitis in the descending colon, sigmoid colon, and rectum. Diagnostic possibilities are (1) severe acute infectious
colitis (possibly C. difficile colitis) or (2) acute on chronic ulcerative colitis.
2. Cecal bascule without evidence for colonic obstruction.
3. Mild small bowel distention suggesting an ileus.
4. 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
5. Suspected acute infarct in the spleen.
6. Mild intrahepatic and extrahepatic biliary dilatation.
7. Previous cholecystectomy and hysterectomy.
8. 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
- Admit to
- GI consult
- IV Levaquin and Flagyl
- C. Diff and stool culture pending
- consider steroids if C. Diff negative
#renal infarct of left kidney
Abd/Pelvis CT: 4. 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
- start Lovenox Sq
#GI Bleed
diarrhea x2.5 months with sara red blood with sensation of BM this morning
WBC 14.1
- monitor H/H
#benign hypertension
- continue valsartan-hydrochlorothiazide
#rheumatoid arthritis
- continue methotrexate
Code Status: Full Code
DVT Prophylaxis: Lovenox Sq
[2024-10-15 16:13] LABS: Lactic Acid 1.3 mmol/L (0.7-2.0)
[2024-10-15 19:26] VITALS: BMI 23.3
[2024-10-15 19:37] VITALS: BP 123/77
--- NOTE | 2024-10-15 20:00 | PTCARENOTE ---
Received patient from ED via stretcher accompanied by ED PCT, patient ambulated self to room without difficulty. Oriented to room/facility, call [place] within reach, VSS, care ongoing.
[2024-10-15] MEDS: FLAGYL 500 MG 100 IV (21:55)
[2024-10-15] MEDS: LEVAQUIN 150 IV (21:55)
[2024-10-15] MEDS: LOVENOX 40 MG SC (21:55)
[2024-10-15 23:13] VITALS: BP 124/71
[2024-10-16 03:24] VITALS: BP 139/72
[2024-10-16] MEDS: FLAGYL 500 MG 100 IV ×3 (04:04→21:00)
--- NOTE | 2024-10-16 07:34 | W.PN.HOSP.TC ---
Addendum entered and electronically signed by Lana Deluna MD 10/16/24 14:33:
I personally performed a history and physical exam of the patient and discussed management with the resident. I reviewed the resident's note and agree with the documented findings and plan of care HPI/CC.
A/P:
# Acute Hematochezia
# Severe acute colitis
# Possible Ulcerative Colitis flare
CT AP noted severe acute colitis in ascending and transverse colon, acute infarct in the lateral cortex of the lower pole of left kidney, and possibly spleen.
GI on board, input appreciated. Defer steroid to GI
C. difficile negative, Follow stool studies
Continue IV Levaquin and Metronidazole
Continue clears diet
Pt follows with GI Dr. Che outpatient
# Essential Hypertension
Continue home med
# Rheumatoid Arthritis
continue methotrexate
# Incidental findings of L Renal infarct and possible splenic infarct
Check echo
Card CS for A fib work up
Full Code
DVT ppx: Lovenox subq
Original Note:
Today's Communication/Plan
-
Continue IV antibiotics
clear diet
Assessment / Plan
Assessment / Plan
Impression: Patient is 79-year-old female with past medical history significant for hypertension and rheumatoid arthritis who presented to ED for evaluation of consistent diarrhea for 2.5 months and a bright red bowel movement this morning.
Assessment/Plan:
#Acute Hematochezia- Severe acute colitis
#Ulcerative Colitis
-CT abdomen showed: Severe acute colitis, acute infarct in the lateral cortex of the lower pole of left kidney, Mild small bowel distention suggesting an ileus
-GI consulted, input appreciated
- Continue clears diet
- Continue IV Levaquin and Metronidazole
- Stool studies pending
-Follows with outpatient
-GI to start IV steroids
#Essential Hypertension
-Continue home med
#Rheumatoid Arthritis
- continue methotrexate
#Renal infarct of left kidney
- Abd/Pelvis CT: acute infarct in the lateral cortex of the lower pole of the left kidney which appears to be secondary to left renal artery occlusion.
- Continue Lovenox Sq
Full Code
DVT ppx: lovenox subq
Anticipated Discharge: 24 - 48 hours
Subjective/Interval History
-
Date of Service: October 16, 2024
Patient denies any symptoms of severe nausea or vomiting today.
Objective Data
-
Labs:
Laboratory Results
10/16/24
07:34
WBC Pending
Hgb Pending
Hct Pending
Plt Count Pending
Sodium Pending
Potassium Pending
Chloride Pending
Carbon Dioxide Pending
BUN Pending
Creatinine Pending
Glucose Pending
Calcium Pending
Vital Signs:
Vital Signs
Temp Pulse Resp BP Pulse Ox
97.5 F 78 16 139/72 99
10/16/24 03:24 10/16/24 03:24 10/16/24 03:24 10/16/24 03:24 10/16/24 03:24
I&O
10/15/24 10/16/24 10/17/24
06:59 06:59 06:59
Intake Total 350 / 350
Balance 350 / 350
Review of Systems
-
All other systems: Reviewed and negative
Physical Exam
-
General: No Apparent Distress
HEENT: Normocephalic
Respiratory: Clear to Auscultation
Cardiac: Regular Rhythm and S1/S2; Negative Murmur
GI: Soft, Nontender, Nondistended and Normal Bowel Sounds
Musculoskeletal: No Edema
Skin: Warm and Dry
Neuro: Awake, Alert and Oriented
Psych: Calm
[2024-10-16 07:52] LABS: Hematocrit 37.4 % (37.0-47.0); Mean Corp Hgb Conc. 34.8 g/dL (33.0-37.0); Mean Corpuscular Hgb 32.3 pg (27.0-31.0); Mean Platelet Volume 9.5 fL (7.4-10.4); Platelet Count 268 10^3/uL (130-400); Red Blood Cell Count 4.02 10^6/uL (4.20-5.40); Red Cell Dist. Width 12.9 % (11.5-14.5); White Blood Cell Count 10.2 10^3/uL (4.8-10.8)
[2024-10-16 08:21] LABS: Blood Urea Nitrogen 11 mg/dl (7-17); Calcium 8.3 mg/dl (8.4-10.2); Carbon Dioxide 25 mmol/L (22-30); Chloride 101 mmol/L (98-107); Estimated Creatinine Clearance 58 ml/min; Glucose 91 mg/dl (70-99); Sodium 134 mmol/L (135-145); eGFR > 60.00
[2024-10-16] MEDS: FOLVITE 1 MG PO (09:16)
[2024-10-16] MEDS: DIOVAN 40 MG PO (09:17)
[2024-10-16] MEDS: ORETIC 6.25 MG PO (09:17)
[2024-10-16 12:00] VITALS: BP 121/75
--- NOTE | 2024-10-16 13:02 | CM ---
Patient seen at bedside with present. Patient states that she lives with in a 2 story home but remains on first floor. Patient states that her PCP is Dr. Thompson and that she uses the [facility]. Patient stated that she has no DME
that she uses at this time. Patient plan is for discharge home with no needs. CM will continue to follow for discharge planning needs.
Plan; home with ; watch for VN needs.
--- NOTE | 2024-10-16 14:52 | W.PN.GI.CBS2 ---
Addendum entered and electronically signed by Cate Fragoso MD 10/16/24 15:54:
I saw and examined the patient.
The RN ONCOLOGY RESEARCH or PA's note was reviewed and I agree with the note.
Comment: Patient continues to have significant diarrhea, so far C. difficile negative, stool cultures pending but moderate white cells noted in the stool.
No fevers or chills.
Agree with adding Solu-Medrol IV 20 mg every 8 hours.
For flexible sigmoidoscopy tomorrow.
Okay for low residue and low lactose diet for now but n.p.o. past midnight.
Outpatient follow-up with Dr. Che, plan is to change biologic as Cimzia is not effective anymore.
Continue low-dose Lovenox for suspected acute infarct of spleen and left kidney
Original Note:
Today's Communication / Plan
-
etiology of diarrhea and bleeding related likely to active UC flare, in differential ischemic process with concern for renal/splenic thrombosis, infectious source with c-diff neg vs other
cont abx
CRP 55.4, ESR 24, fecal kevin pending
cont Lovenox as no further bleeding-- hbg stable at 13
c-diff, Giardia, crypto neg other cx pending
plan for flex in AM to rule out CMV and assess status of IBD
add IV Solumedrol 20mg Q 8 hours
hepatitis B/C and TB testing pending as plan for change in chronic IBD therapy
Dr. Che considering change in chronic therapy --cannot get Rinvoq with hx thrombosis issue, rash in past with remicade
ideally therapy to cover RA and UC-- pt remains on methotrexate prior to admission
will allow low residue diet with supplement and NPO in AM for flex
appreciate medical input with noted thrombosis
updated Dr. Deluna from hospitalist team
family updated at bedside
Assessment / Plan
-
Pt is a 79yo with hx long standing RA on multiple medication, H pylori, skin CA, osteoporosis, GERD with ulcerative segovia colitis since 2020. She recall being on Mesalamine in past and Remicade for RA but did not tolerate with rash. She recently
has been on Cimzia but stopped about 2 months ago as was consider change on therapy. She states she began with diarrhea about 8-10 stools per day about 2 months ago. She initially was treated with steroid taper. She then completed stool cultures
neg 09/13 with c-diff ag + tox neg and pt was placed on Dificid for 10 days. Pt also admits to abx for tooth issue. She continued with symptoms repeat 10/08 was neg c-diff. She was scheduled to see Dr. Che today and noted large bloody stool and
came to ER instead of office visit. On admission she is noted with CT with severe acute colitis with concern for c-diff vs chronic UC, cecal bascule without obstruction, mild SB ileus with acute infarct of left kidney appear secondary to occlusion,
suspected acute infarct of spleen mild intra and extra hepatic biliary dilation, prior girma and hysterectomy, mod DDD. Labs notable for WBC 13,900, hbg 14,100, Na 133. No recent travel or sick contacts.
-diarrhea/bloody stool
-hx Ulcerative segovia colitis- CT with severe acute colitis
-cecal bascule/ileus on CT
-CT with renal and splenic infarct
-RA with chronic joint pains
other med problems:
-hx girma
-h pylori
-osteoporosis
-GERD
-reaction with Remicade in past
PLAN:
etiology of diarrhea and bleeding related likely to active UC flare, in differential ischemic process with concern for renal/splenic thrombosis, infectious source with c-diff neg vs other
cont abx
CRP 55.4, ESR 24, fecal kevin pending
cont Lovenox as no further bleeding-- hbg stable at 13
c-diff, Giardia, crypto neg other cx pending
plan for flex in AM to rule out CMV and assess status of IBD
add IV Solumedrol 20mg Q 8 hours
hepatitis B/C and TB testing pending as plan for change in chronic IBD therapy
Dr. Che considering change in chronic therapy --cannot get Rinvoq with hx thrombosis issue, rash in past with remicade
ideally therapy to cover RA and UC-- pt remains on methotrexate prior to admission
will allow low residue diet with supplement and NPO in AM for flex
appreciate medical input with noted thrombosis
updated Dr. Deluna from hospitalist team
Subjective
Subjective
Date of Service: October 16, 2024
still with frequent stool non bloody
Objective
Data Reviewed
Laboratory Data:
Laboratory Results
10/16/24 07:34
10/16/24 07:34
Laboratory Results
PT 13.0 Sec (11.4-14.6) 10/15/24 11:43
INR 0.95 10/15/24 11:43
Total Bilirubin 0.7 mg/dl (0.2-1.3) 10/15/24 11:43
AST 19 U/L (14-36) 10/15/24 11:43
ALT 15 U/L (0-35) 10/15/24 11:43
Alkaline Phosphatase 75 U/L (38-126) 10/15/24 11:43
Lipase 57 U/L (23-300) 10/15/24 11:43
Vital Signs and I&O:
Vital Signs
Temp Pulse Resp BP Pulse Ox
98.8 F 81 18 121/75 97
10/16/24 12:00 10/16/24 12:00 10/16/24 12:00 10/16/24 12:00 10/16/24 12:00
I&O
10/15/24 10/16/24 10/17/24
06:59 06:59 06:59
Intake Total 350 / 350
Balance 350 / 350
Physical Exam
Physical Exam
HEENT: Anicteric and Moist mucous membranes
Cardiology: Normal Sinus Rhythm
Pulmonary: Clear
GI: Soft, Non Distended and Tender (mild )
Rectal: Other (per chart brown gelatinous stools )
Extremities: No Edema
Neuro: Non Focal
[2024-10-16 16:00] VITALS: BP 152/88
[2024-10-16] MEDS: LOVENOX 40 MG SC (16:12)
[2024-10-16] MEDS: SOLU-MEDROL PF 20 MG IV ×2 (16:13→23:38)
--- NOTE | 2024-10-16 16:31 | CON.CAR ---
Addendum entered and electronically signed by Shawna Manuel MD 10/16/24 17:21:
I saw and examined the patient.
The Upholstery Technician's note was reviewed and I agree with the note.
Comment: Bella is a 79-year-old female with past medical history of ulcerative colitis, hypertension, rheumatoid arthritis, very small perimembranous VSD noted on echo since 2018, brief, nonsustained episodes of atrial tachycardia noted on
supervisor covering and lining over 2 weeks in January 2023, GERD who presents this admission with diarrhea, abdominal cramping and bright red blood per rectum found to have severe acute colitis with plan for GI workup and flex sigmoidoscopy tomorrow. On her
abdominal CT she was noted to have a left renal infarct and a possible splenic infarct and therefore cardiology was consulted given concern for a possible cardioembolic source. Patient denies any active or recent cardiac complaints. Of note,
patient underwent a 2-week monitor in 2022 given concern for possible paroxysmal atrial flutter however no clear atrial fibrillation or atrial flutter was noted on the 2-week monitor and therefore patient has not been on long-term anticoagulation.
No prior strokes or mini strokes.
Vital signs and lab work reviewed. On exam, patient is extremely frustrated but denies any acute complaints. No acute distress, awake, alert and oriented x 3, at bedside, regular rate, normal S1 and S2, no murmurs, rubs or gallops, no
carotid bruit with normal carotid upstrokes and no JVD, lungs are clear to auscultation bilaterally, abdomen is soft, mildly tender to palpation diffusely, hyperactive bowel sounds, warm extremities without significant edema.
Recommendations:
1. No clear atrial fibrillation or flutter has been identified as a potential cardioembolic source. Given concerns on CT for left renal infarct and a possible splenic infarct, I would be reasonable to initiate full anticoagulation if safe from a
GI standpoint. Would initiate IV heparin either later today versus tomorrow as recommended by GI.
2. Echocardiogram with no acute changes compared to prior echo from 2022. Of note a very small perimembranous VSD is noted by color-flow Doppler and appears to be present since 2018. I doubt this would be contributing in any way.
3. Without clear cardioembolic source, depending on results of the GI workup, may be reasonable to consider longer-term monitoring while patient remains on anticoagulation to rule out atrial fibrillation/flutter warranting long-term full
anticoagulation and possible outpatient transesophageal echocardiogram. Briefly discussed this with the patient who is not agreeable for any workup inpatient and is demanding to go home as soon as possible. Despite redirection and trying multiple
times to explain the concerns, she keeps repeating and frustration ' there is nothing wrong with my heart' and ' I did not come to the hospital for my heart'
at bedside relayed understanding of discussions above.
Shanwa Manuel MD, [facility], [facility]
Original Note:
Consultation
Consultation Request
Date/Time Consultation Performed: 10/16/24
Requesting Provider: Dr. Deluna
Performing Provider: Alcira Tse PA-C for Dr. Manuel
Reason for Consultation: spleen and renal infarcts, eval for cardioembolic source
Medical History
-
Chief Complaint: BRBPR
History of Present Illness:
Patient is a 79-year-old female with past medical history of ulcerative colitis, hypertension, rheumatoid arthritis, 'tiny' perimembranous VSD by prior echo in 2019 who reports having issues with diarrhea for the last several months. Her
medications have been transitioned around. She reports she has remained with some diarrhea, abdominal cramping, and had bright red blood per rectum over the last several days and was referred by GI to the ER for admission. She reports last bloody
BM was yesterday. Hemoglobin is stable at 13. Cardiology consulted as patient noted by imaging to have severe colitis as well as a left renal infarct and splenic infarct with concern for cardioembolic source. Transthoracic echo pending at this
time. Denies chest pain, shortness of breath, palpitations. There was previously question of her having paroxysmal atrial flutter, however she underwent 2-week supervisor covering and lining which showed several episodes of brief atrial tachycardia, however no
clear A-fib or a flutter and therefore anticoagulation was not initiated.
PMH:
Ulcerative colitis
GERD
Atrial tachycardia, brief by supervisor covering and lining 01/2023
Hypertension
Rheumatoid arthritis
'Tiny' perimembranous VSD by echo in 2018
Past Medical History
Past Medical History: Other (in HPI)
Social History
Tobacco: Non-Smoker
Alcohol: None
Personal:
Living: With Family
Family History
Family History: CAD and Diabetes
Allergies / Home Medications
Allergy/AdvReac Type Severity Reaction Status Date / Time
infliximab Allergy Unknown Rash Verified 10/15/24 11:32
homatropine Allergy Itching Verified 10/15/24 11:32
[From Hycodan (with
homatropin)]
hydrocodone Allergy Itching Verified 10/15/24 11:32
[From Hycodan (with
homatropin)]
morphine Allergy Itching Verified 10/15/24 11:32
naproxen [From Naprosyn] Allergy Rash Verified 10/15/24 11:32
promethazine Allergy NAUSEA/VOMI Verified 10/15/24 11:32
TING
�Medication �Instructions �Recorded �Confirmed �Type
diclofenac sodium 75 mg 75 mg PO BID Pain 06/02/21 10/15/24 History
tablet,delayed release
methotrexate sodium 2.5 mg tablet 10 mg PO TU Autoimmune disorder 06/02/21 10/15/24 History
folic acid 1 mg tablet 1 mg PO DAILY 10/15/24 10/15/24 History
trazodone 50 mg tablet 50 mg PO HSPRN PRN sleep 10/15/24 10/15/24 History
valsartan 80 0.5 tab PO DAILY 10/15/24 10/15/24 History
mg-hydrochlorothiazide 12.5 mg
tablet
Review of Systems
-
History Source: Patient
All other systems: Negative unless noted
Physical Exam
Vital Signs
Temp Pulse Resp BP Pulse Ox
98.8 F 81 18 121/75 97
10/16/24 12:00 10/16/24 12:00 10/16/24 12:00 10/16/24 12:00 10/16/24 12:00
Lab Results
10/16/24 07:34
10/16/24 07:34
Physical Exam
General: No Apparent Distress and Comfortable
HEENT: Normocephalic, Anicteric and Moist Mucous Membranes
Respiratory: Clear and Non Labored Respirations
Cardiac: S1/S2, Regular Rhythm and Murmur
GI: Soft, Non Tender, Non Distended and Normal Bowel Sounds
Musculoskeletal: No Clubbing, No Cyanosis and No Edema
Skin: Warm and Dry
Neuro: AO x 3
Impression / Plan
-
Primary Undercollar Baster: Dr. KIMMIE Murray
Assessment:
Presentation with BRBPR
Severe colitis by CTAP
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
Ulcerative colitis
GERD
Atrial tachycardia, brief by supervisor covering and lining 01/2023
Hypertension
Rheumatoid arthritis
'Tiny' perimembranous VSD by echo in 2019
ECHO 04/12/23: EF 60 to 65%, mild concentric LVH, tiny perimembranous ventricular septal defect, MAC, mild MR, aortic sclerosis, trace AR, normal right heart with normal PAP
Plan:
-Patient presented with bright red blood per rectum and found to have severe colitis by CT of the abdomen pelvis. She has known ulcerative colitis. Treatment per GI, and plan for flex sig in a.m.
-Cardiology consulted as patient noted to have left renal and splenic infarcts by CT of the abdomen and pelvis. There is concern for cardioembolic source.
-Last echo from 04/2023 with results as above. Repeat pending
-In sinus rhythm thus far on review of telemetry. Check EKG. she did have a outpatient monitor 01/2023 which showed multiple brief episodes of atrial tachycardia however no clear A-fib or a flutter
-May need longer-term cardiac monitoring moving forward to assist with determining duration of anticoagulation therapy
-Discussed with GI. Difficult situation as with GI/rectal bleeding as well as indication for anticoagulation. They are okay with trial of IV heparin no bolus. follow H&H. will hold IV heparin as of 6AM in prep for flex sig.
Data Reviewed
-
CT Scan: Report Reviewed by me
Medical Tests (Nuc Med, Echo etc): Report Reviewed by me
Labs: Labs Reviewed by me
Old Records: Reviewed
[2024-10-16] MEDS: HEPARIN 25000 UNITS/250 ML IV (18:34)
[2024-10-16 18:58] LABS: APTT 40.7 Sec (23.4-35.0)
[2024-10-16 19:46] VITALS: BP 139/88
[2024-10-16] MEDS: LEVAQUIN 150 IV (22:13)
[2024-10-16 23:35] VITALS: BP 114/86
[2024-10-17] VITALS (7 sets, daily range): BP systolic 106–138; BP diastolic 57–88; PULSE 84
[2024-10-17 01:47] LABS: APTT 63.5 Sec (23.4-35.0)
[2024-10-17] MEDS: FLAGYL 500 MG 100 IV (04:04)
--- NOTE | 2024-10-17 07:34 | W.PN.HOSP.TC ---
Addendum entered and electronically signed by Lana Deluna MD 10/17/24 11:04:
I personally performed a history and physical exam of the patient and discussed management with the resident. I reviewed the resident's note and agree with the documented findings and plan of care HPI/CC.
A/P:
# Acute Hematochezia
# Severe acute colitis
# Ulcerative Colitis flare
CT AP noted severe acute colitis in ascending and transverse colon, acute infarct in the lateral cortex of the lower pole of left kidney, and possibly spleen.
s/p Flex sig 10/17, noted Ulcerative colitis.
Follow pathology results.
IV steroids to prednisone 40mg po daily.
Cont Low residue and low lactose diet per GI
Pt still on empiric IV Levaquin and Metronidazole, will check with GI if OK to stop
Outpatient followup with Dr. Che in 4 weeks.
# Essential Hypertension
Continue home med
# Rheumatoid Arthritis
continue methotrexate
# Incidental findings of L Renal infarct and possible splenic infarct. ?paroxysmal A fib?
Echo showed EF 60-65%. Tiny ventricular septal defects may be present
Check BL LE US due to possible VSD.
Card on board for A fib eval and OAC recc
Full Code
DVT ppx: heparin drip started by card now on hold, OAC TBD
Original Note:
Today's Communication/Plan
-
flex sig procedure today
continue IV steroids
continue IV antibiotics
Assessment / Plan
Assessment / Plan
Impression: Patient is 79-year-old female with past medical history significant for hypertension and rheumatoid arthritis who presented to ED for evaluation of consistent diarrhea for 2.5 months and a bright red bowel movement this morning.
Assessment/Plan:
#Acute Hematochezia- Severe acute colitis
#Ulcerative Colitis
-CT abdomen showed: Severe acute colitis, acute infarct in the lateral cortex of the lower pole of left kidney, Mild small bowel distention suggesting an ileus
-GI consulted, input appreciated
- Continue IV Levaquin and Metronidazole
- Stool studies pending
-Follows with outpatient
-Iv steroids initiated (pt had visual hallucinations)
-NPO until flex sig today
#Essential Hypertension
-Continue home med
#Rheumatoid Arthritis
- continue methotrexate
# Incidental findings of L Renal infarct and possible splenic infarct
- Abd/Pelvis CT: acute infarct in the lateral cortex of the lower pole of the left kidney which appears to be secondary to left renal artery occlusion.
-Cardiology consulted, input appreciated
-echo:EF 60-65%, Tiny perimembranous ventricular septal defects may be present on color flow Doppler, suggested on prior echo
-Continue Lovenox Sq; may change anticoagulation to IV hep as per cardiology/GI
Full Code
DVT ppx: lovenox subq
Anticipated Discharge: 24 - 48 hours
Subjective/Interval History
-
Date of Service: October 17, 2024
Patient states that she has been having hallucinations, sees 'bird flying in room'.
Objective Data
-
Labs:
Laboratory Results
10/17/24 10/17/24 10/17/24
01:23 06:00 08:00
WBC Pending
Hgb Pending
Hct Pending
Plt Count Pending
APTT 63.5 H Pending
Sodium Pending
Potassium Pending
Chloride Pending
Carbon Dioxide Pending
BUN Pending
Creatinine Pending
Glucose Pending
Calcium Pending
Vital Signs:
Vital Signs
Temp Pulse Resp BP Pulse Ox
97.5 F 76 16 138/88 99
10/17/24 03:45 10/17/24 03:45 10/17/24 03:45 10/17/24 03:45 10/17/24 03:45
I&O
10/16/24 10/17/24 10/18/24
06:59 06:59 06:59
Intake Total 350 / 350 970 / 970
Balance 350 / 350 970 / 970
Review of Systems
-
All other systems: Reviewed and negative
Physical Exam
-
General: No Apparent Distress
HEENT: Normocephalic
Respiratory: Clear to Auscultation
Cardiac: Regular Rhythm and S1/S2; Negative Murmur
GI: Soft, Nontender and Nondistended
Musculoskeletal: No Edema
Skin: Warm and Dry
Neuro: Awake, Alert and Oriented
Psych: Calm
[2024-10-17] MEDS: DIOVAN 40 MG PO (08:04)
[2024-10-17] MEDS: FOLVITE 1 MG PO (08:05)
[2024-10-17] MEDS: ORETIC 6.25 MG PO (08:05)
[2024-10-17] MEDS: SOLU-MEDROL PF 20 MG IV (08:05)
[2024-10-17 08:07] LABS: % Basophils 0.4 % (0-2); % Immature Granulocytes 0.7 % (0-0.5); % Lymphocytes 23.9 % (20.5-51.1); % Monocytes 5.7 % (1.7-9.3); % Neutrophils 69.3 % (42.2-75.2); Absolute Basophils 0.1 10^3/uL (0-0.2); Absolute Immature Granulocytes 0.1 10^3/uL (0-0.05); Absolute Lymphocytes 2.9 10^3/uL (1.2-3.4); Absolute Monocytes 0.7 10^3/uL (0.1-0.6); Absolute Neutrophils 8.3 10^3/uL (1.4-6.5); Hematocrit 36.9 % (37.0-47.0); Mean Corp Hgb Conc. 35.2 g/dL (33.0-37.0); Mean Corpuscular Hgb 32.5 pg (27.0-31.0); Mean Corpuscular Volume 92.3 fL (81.0-99.0); Mean Platelet Volume 9.4 fL (7.4-10.4); Nucleated Red Blood Cells % 0 %; Platelet Count 284 10^3/uL (130-400); Red Cell Dist. Width 12.8 % (11.5-14.5); White Blood Cell Count 11.9 10^3/uL (4.8-10.8)
[2024-10-17 08:20] LABS: APTT 38.3 Sec (23.4-35.0)
[2024-10-17 08:54] LABS: Blood Urea Nitrogen 10 mg/dl (7-17); Calcium 8.6 mg/dl (8.4-10.2); Carbon Dioxide 23 mmol/L (22-30); Chloride 100 mmol/L (98-107); Estimated Creatinine Clearance 50 ml/min; Glucose 131 mg/dl (70-99); Potassium 3.6 mmol/L (3.5-5.1); Sodium 133 mmol/L (135-145); eGFR > 60.00
--- NOTE | 2024-10-17 08:55 | CM ---
Addendum entered by Nirmala Castellanos RN 10/17/24 10:50:
IMM on chart. Copy left with pt at bedside.
Original Note:
Reviewed the chart notes. Patient for flexible sigmoidoscopy today. CM continues to be available to patient/family and is monitoring medical plan for needs at discharge.
Plan: Discharge to home when medically stable. No needs anticipated at this time.
--- NOTE | 2024-10-17 11:30 | W.PN.CARDCBS ---
Addendum entered and electronically signed by Arturo Murray MD 10/17/24 12:17:
79-year-old woman who presented with hematochezia related to colitis on CT scan. Known history of ulcerative colitis. Evidence of left renal and splenic infarct by CT scan of abdomen and pelvis. Prior history of atrial tachycardia monitor in
2022. Currently on heparin. Currently without complaints, Sigmoidoscopy performed earlier today
PMH: Ulcerative colitis, GERD, brief atrial tachycardia, hypertension, rheumatoid arthritis and reported small perimembranous VSD
Allergies, outpatient meds reviewed
Current meds: Folic acid, valsartan 40 mg a day, hydrochlorothiazide 6.25 mg a day, IV heparin currently on hold, and prednisone 40 mg daily
107/76, pulse 76, weight is 55.8 kg, no distress, head neck exam unremarkable, lungs are clear, cardiac exam very soft systolic murmur, abdomen benign, extremities without clubbing cyanosis or edema, pulses intact
EKG: Sinus rhythm, PACs, cannot exclude lateral TX
Echo: EF 60-65%, very small VSD may be present, no significant valve abnormality
Hemoglobin 13, sodium 133, BUN/creatinine 10 and 0.7
Impression:
Hematochezia/ulcerative colitis
History of atrial tachycardia
Small splenic and renal infarcts suggesting of cardioembolic source
Possible tiny perimembranous VSD
Plan:
Resume heparin when okay with GI
Switch to DOAC in a.m. if okay with GI
Outpatient monitor for 2 weeks
We will arrange for outpatient follow-up. Could consider transesophageal echo at that time.
Original Note:
Today's Communication / Plan
-
follow on tele
resume IV heparin @3. plan to transition to DOAC in AM
OP cardiac monitoring and consideration for OP SANRDINE to rule out cardiac source for emboli
Impression / Plan
-
Primary Media Consultant: Dr. KIMMIE Murray
Assessment:
Presentation with BRBPR
Severe colitis by CTAP
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
Ulcerative colitis
GERD
Atrial tachycardia, brief by brazing furnace operator 01/2023
Hypertension
Rheumatoid arthritis
'Tiny' perimembranous VSD by echo in 2018
ECHO 04/12/23: EF 60 to 65%, mild concentric LVH, tiny perimembranous ventricular septal defect, MAC, mild MR, aortic sclerosis, trace AR, normal right heart with normal PAP
ECHO 10/16/24: EF 60 to 65%, tiny perimembranous VSD, stable compared to prior echo, no significant valvular abnormalities
Plan:
-Patient presented with bright red blood per rectum and found to have severe colitis by CT of the abdomen pelvis. She has known ulcerative colitis.
-s/p flex sig 10/17 without clear etiology of bleeding
-she was noted to have left renal and splenic infarcts by CT of the abdomen and pelvis. There is concern for cardioembolic source.
-she was started on IV heparin. resume 4 hours post flex sig as per GI recs. plan to transition to DOAC in AM if tolerating heparin
-She remains in sinus rhythm/sinus tach thus far on review of telemetry overnight. she did have a outpatient monitor 01/2023 which showed multiple brief episodes of atrial tachycardia however no clear A-fib or a flutter. Would consider for 2-week
Bardy monitor to be placed prior to discharge 10/18 to assist with determining duration of anticoagulation therapy as well as consideration for OP SANDRINE
-will arrange OP cardiac follow up
-d/w nursing. d/w patient and at bedside
Progress Note - Media Consultant
Subjective
Date of Service: October 17, 2024
feels well this AM. no palpitations. reports some hallucinations on IV steroids overnight
Objective
Labs:
10/17/24 07:55
10/17/24 07:55
Labs
Hgb 13.0 g/dL (12.0-16.0) 10/17/24 07:55
Hct 36.9 % (37.0-47.0) L 10/17/24 07:55
Plt Count 284 10^3/uL (130-400) 10/17/24 07:55
PT 13.0 Sec (11.4-14.6) 10/15/24 11:43
INR 0.95 10/15/24 11:43
APTT 38.3 Sec (23.4-35.0) H 10/17/24 07:55
Sodium 133 mmol/L (135-145) L 10/17/24 07:55
Potassium 3.6 mmol/L (3.5-5.1) 10/17/24 07:55
BUN 10 mg/dl (7-17) 10/17/24 07:55
Creatinine 0.7 mg/dL (0.6-1.0) 10/17/24 07:55
Glucose 131 mg/dl (70-99) H 10/17/24 07:55
Vital Signs and I&O:
Vital Signs
Temp Pulse Resp BP Pulse Ox
97.3 F 76 17 107/76 99
10/17/24 11:22 10/17/24 11:22 10/17/24 11:22 10/17/24 11:22 10/17/24 11:22
Vital Signs
Temp Pulse Resp BP Pulse Ox
97.3 F 76 17 107/76 99
10/17/24 11:22 10/17/24 11:22 10/17/24 11:22 10/17/24 11:22 10/17/24 11:22
Intake & Output
10/15/24 10/16/24 10/17/24 10/18/24
07:59 07:59 07:59 07:59
Intake Total 350 / 350 970 / 970
Balance 350 / 350 970 / 970
Physical Exam
Physical Exam
GEN: No distress, awake, alert, oriented x3
HEENT: supple, anicteric, mmm, eomi
LUNGS: CTA B/L, no wheezes/rales
CV: Reg, S1/S2, no murmur
ABD: soft, BS+, NT/ND
EXT: No cyanosis, clubbing, edema
NEURO: Gross non-focal
SKIN: Warm, pink, dry. No rash
--- NOTE | 2024-10-17 15:31 | PTOTSP ---
Patient independent with bed mobility, transfers, and ambulation. No skilled PT needs, will sign off.
[2024-10-17 15:44] LABS: APTT 33.2 Sec (23.4-35.0)
[2024-10-17] MEDS: HEPARIN 25000 UNITS/250 ML IV (16:03)
--- NOTE | 2024-10-17 17:44 | PTCARENOTE ---
Pt had flex/sig this morning - showed ulcerative colitis that is unchanged from previous exams. Heparin resumed 4 hours post procedure at 1600. Pt c/o hallucinations r/t IV steroids. Steroids switched to PO.
[2024-10-17 19:52] LABS: Hepatitis B Surface Antigen Negative (Negative)
[2024-10-17 20:11] LABS: Hepatitis B Surface Antibody Negative; Hepatitis C Antibody Negative (Negative)
[2024-10-17 20:12] LABS: Hepatitis B Core Ab, Total Negative (Negative)
[2024-10-17 22:45] LABS: APTT 35.2 Sec (23.4-35.0)
[2024-10-18 03:41] VITALS: BP 143/71
[2024-10-18 06:04] LABS: APTT 67.4 Sec (23.4-35.0)
--- NOTE | 2024-10-18 07:21 | W.PN.HOSP.TC ---
Addendum entered and electronically signed by Lana Deluna MD 10/18/24 22:02:
total DC time 38 min
Addendum entered and electronically signed by Lana Deluna MD 10/18/24 13:30:
I personally performed a history and physical exam of the patient and discussed management with the resident. I reviewed the resident's note and agree with the documented findings and plan of care HPI/CC.
A/P:
# Acute Hematochezia 2/2 acute colitis from Ulcerative Colitis flare
CT AP noted severe acute colitis in ascending and transverse colon, acute infarct in the lateral cortex of the lower pole of left kidney, and possibly spleen.
s/p Flex sig 10/17, noted Ulcerative colitis.
Follow pathology results outpatient.
IV steroids -> prednisone 40mg po daily -> Budesonide 9mg until seen by GI outpatient
Off empiric Abx IV Levaquin and Metronidazole
Outpatient followup with Dr. Che in 4 weeks.
# Essential Hypertension
Continue home med
# Rheumatoid Arthritis
continue methotrexate
# Incidental findings of L Renal infarct and possible splenic infarct. ?paroxysmal A fib?
Echo showed EF 60-65%. Tiny ventricular septal defects may be present
BL LE US neg for DVT (checked due to possible VSD noted in echo).
Card on board, recc OAC and Eliquis 5 mg twice daily started
Full Code
DVT ppx: Eliquis 5 mg twice daily started
Original Note:
Today's Communication/Plan
-
Initiated budesonide
Initiated Eliquis
Dispo pending home today
Assessment / Plan
Assessment / Plan
Impression: Patient is 79-year-old female with past medical history significant for hypertension and rheumatoid arthritis who presented to ED for evaluation of consistent diarrhea for 2.5 months and a bright red bowel movement this morning.
Assessment/Plan:
#Acute Hematochezia- Severe acute colitis
#Ulcerative Colitis
-CT abdomen showed: Severe acute colitis, acute infarct in the lateral cortex of the lower pole of left kidney, Mild small bowel distention suggesting an ileus
-GI consulted, input appreciated
- Continue IV Levaquin and Metronidazole
- Stool studies pending
-Follows with outpatient
-IV steroids discontinued, initiated budesonide as per GI
-Flex, done 10/17
-Dispo Home pending today, with outpatient GI follow-up
#Essential Hypertension
-Continue home med
#Rheumatoid Arthritis
- continue methotrexate
# Incidental findings of L Renal infarct and possible splenic infarct
- Abd/Pelvis CT: acute infarct in the lateral cortex of the lower pole of the left kidney which appears to be secondary to left renal artery occlusion.
-Cardiology consulted, input appreciated
-echo:EF 60-65%, Tiny perimembranous ventricular septal defects may be present on color flow Doppler, suggested on prior echo
-IV heparin was resumed after christine sigmoidoscopy
-Transition from heparin to DOAC today Eliquis 5 mg twice daily as per cardiology
� Follow-up with cardiology outpatient
Full Code
DVT ppx: lovenox subq
Anticipated Discharge: Today
Subjective/Interval History
-
Date of Service: October 18, 2024
Patient states that she feels fine today and has no acute concerns such as vomiting or nausea.
Objective Data
-
Labs:
Laboratory Results
10/17/24 10/18/24 10/18/24
22:24 05:30 06:00
WBC Pending
Hgb Pending
Hct Pending
Plt Count Pending
APTT 35.2 H 67.4 H
Sodium Pending
Potassium Pending
Chloride Pending
Carbon Dioxide Pending
BUN Pending
Creatinine Pending
Glucose Pending
Calcium Pending
10/18/24
13:15
WBC
Hgb
Hct
Plt Count
APTT Pending
Sodium
Potassium
Chloride
Carbon Dioxide
BUN
Creatinine
Glucose
Calcium
Vital Signs:
Vital Signs
Temp Pulse Resp BP Pulse Ox
97.7 F 70 16 143/71 98
10/18/24 03:41 10/18/24 03:41 10/18/24 03:41 10/18/24 03:41 10/18/24 03:41
I&O
10/17/24 10/18/24 10/19/24
06:59 06:59 06:59
Intake Total 970 / 970 1440 / 1440
Balance 970 / 970 1440 / 1440
Review of Systems
-
All other systems: Reviewed and negative
Physical Exam
-
General: No Apparent Distress
HEENT: Normocephalic
Respiratory: Clear to Auscultation
Cardiac: Regular Rhythm and S1/S2
GI: Soft, Nontender and Nondistended
Musculoskeletal: No Edema
Skin: Warm and Dry
Neuro: Awake, Alert and Oriented
Psych: Calm
[2024-10-18 07:43] VITALS: BP 132/72
[2024-10-18] MEDS: ORETIC 6.25 MG PO (08:21)
[2024-10-18] MEDS: DIOVAN 40 MG PO (08:21)
[2024-10-18] MEDS: FOLVITE 1 MG PO (08:22)
[2024-10-18] MEDS: DELTASONE 40 MG PO (08:22)
[2024-10-18 08:26] LABS: Hematocrit 36.6 % (37.0-47.0); Hemoglobin 12.5 g/dL (12.0-16.0); Mean Corp Hgb Conc. 34.2 g/dL (33.0-37.0); Mean Corpuscular Hgb 32.3 pg (27.0-31.0); Mean Corpuscular Volume 94.6 fL (81.0-99.0); Mean Platelet Volume 9.8 fL (7.4-10.4); Platelet Count 298 10^3/uL (130-400); Red Blood Cell Count 3.87 10^6/uL (4.20-5.40); Red Cell Dist. Width 13.2 % (11.5-14.5); White Blood Cell Count 21.2 10^3/uL (4.8-10.8)
[2024-10-18] MEDS: ELIQUIS 5 MG PO (08:28)
--- NOTE | 2024-10-18 08:47 | W.PN.GI.CBS2 ---
Today's Communication / Plan
-
Transition to DOAC. D/c prednisone and change to Budesonide 9mg. Path pending, okay for d/c without patient f/u with Dr. Che
Assessment / Plan
-
Bella Mehta is a 79 y.o. female with past medical history of UC and RA on Cimizia and MTX admitted with intractable diarrhea. Over last several months has had diarrhea, tried on budesonide, but she did not tolerate it with vomiting. Was put on
prednisone taper. C diff was Ag positive, toxin negative, which I treated with Dificid even though this was possible colonization, since she wasn't improving on prednisone. She had repeat C diff negative 11/08. I discussed flex sig, but she
cancelled since she was dealing with tool abscess and thought that had something to do with her sx.
In ER, WBC elevated 13.9 with 18% bands. CT shows severe acute colitis in ascending/transverse colon, moderate colitis in L colon and acute infarct in L kidney and suspected infarct spleen.
Flexible sigmoidoscopy 10/15/2024: Inflammation characterized by erythema and loss of vascularity was found in a continuous and circumferential pattern from the rectum to the descending colon, Logan score 1 and unchanged compared to prior examinations.
Biopsies taken. A few small mouth diverticula were found in the sigmoid colon and descending colon.
Symptoms overall improving, reports formed stool overnight. Endoscopic exam was overall unimpressive, especially given findings on CT exam, suspect microscopic/lymphocytic colitis, biopsies still pending. Endorses hallucinations on prednisone, will
switch to Budesonide 9mg daily and have her follow-up with Dr. Che as an outpatient to taper.
-Tolerating low residue diet without issue
-Change to Budesonide 9mg daily
-OP f/u with Dr. Che to discuss biopsies/if biologic agent needs to be changed
-okay to transition lovenox to DOAC for findings of small splenic and renal infarcts, afib?
-OP f/u with cardiology in 2 weeks
Subjective
Subjective
Date of Service: October 18, 2024
Patient overall feels much better today, states her stool is becoming more formed, would very much like to be discharged today as her friend this week and she would like to go to the tomorrow. She underwent flexible sigmoidoscopy
yesterday with findings of mild inflammation throughout the colon, overall unchanged from prior exam. There is a large discordance between endoscopic findings on yesterday's exam and radiologic findings. She does state that she experienced
hallucinations with prednisone yesterday.
Objective
Data Reviewed
Laboratory Data:
Laboratory Results
10/18/24 08:02
Laboratory Results
PT 13.0 Sec (11.4-14.6) 10/15/24 11:43
INR 0.95 10/15/24 11:43
APTT Cancelled 10/18/24 13:15
Total Bilirubin 0.7 mg/dl (0.2-1.3) 10/15/24 11:43
AST 19 U/L (14-36) 10/15/24 11:43
ALT 15 U/L (0-35) 10/15/24 11:43
Alkaline Phosphatase 75 U/L (38-126) 10/15/24 11:43
Lipase 57 U/L (23-300) 10/15/24 11:43
Vital Signs and I&O:
Vital Signs
Temp Pulse Resp BP Pulse Ox
98.0 F 72 18 132/72 98
10/18/24 07:43 10/18/24 08:21 10/18/24 07:43 10/18/24 08:21 10/18/24 07:43
I&O
10/17/24 10/18/24 10/19/24
06:59 06:59 06:59
Intake Total 970 / 970 1440 / 1440 11.5 / 11.5
Balance 970 / 970 1440 / 1440 11.5 / 11.5
Physical Exam
Physical Exam
HEENT: Anicteric and Moist mucous membranes
GI: Soft, Non Distended, Non Tender and Normal Bowel Sounds
[2024-10-18 08:53] LABS: Blood Urea Nitrogen 17 mg/dl (7-17); Calcium 8.4 mg/dl (8.4-10.2); Carbon Dioxide 25 mmol/L (22-30); Chloride 105 mmol/L (98-107); Estimated Creatinine Clearance 50 ml/min; Glucose 101 mg/dl (70-99); Sodium 137 mmol/L (135-145); eGFR > 60.00
--- NOTE | 2024-10-18 09:00 | PTOTSP ---
chart reviewed, spoke with pt. pt reports she is going home today and is capable of doing ADLs, functional transfers, ambulation with no assistance. pt declined need for OT evaluation. will sign off per pt's request.
--- NOTE | 2024-10-18 09:06 | W.PN.CARDCBS ---
Addendum entered and electronically signed by Arturo Murray MD 10/18/24 09:43:
Would discharge on valsartan and hydrochlorothiazide as on admission. Please check basic metabolic panel in 1 week.
Addendum entered and electronically signed by Arturo Murray MD 10/18/24 09:41:
She feels well offers no complaints
PMH/PSH/SH/FH: Reviewed
Allergies/meds: Reviewed
132/72, pulse 72, respirate 18, afebrile, sats 98%
Hemoglobin today is 12.5
Potassium is 3
132/72, pulse 72, head like exam unremarkable, lungs are clear cardiac exam is within normal limits abdomen and extremities benign
Impression: See below
Plan:
She appears stable at present. Supplement potassium. Has been on heparin, okay to transition to Eliquis 5 mg twice daily.
We will apply a 2-week monitor at the time of discharge and arrange for follow-up to the office. We can determine need for transesophageal echo at that time. No objections to discharge, call if problems.
Original Note:
Today's Communication / Plan
-
for 2 week Bardy monitor.
transitioned to eliquis 5mg BID
OP cardiac follow up arranged
Impression / Plan
-
Primary Farm Assistant: Dr. KIMMIE Murray
Assessment:
Presentation with BRBPR
Severe colitis by CTAP
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
Ulcerative colitis
GERD
Atrial tachycardia, brief by pvc monitor 01/2023
Hypertension
Rheumatoid arthritis
'Tiny' perimembranous VSD by echo in 2018
ECHO 04/12/23: EF 60 to 65%, mild concentric LVH, tiny perimembranous ventricular septal defect, MAC, mild MR, aortic sclerosis, trace AR, normal right heart with normal PAP
ECHO 10/16/24: EF 60 to 65%, tiny perimembranous VSD, stable compared to prior echo, no significant valvular abnormalities
Plan:
-Patient presented with bright red blood per rectum and found to have severe colitis by CT of the abdomen pelvis. She has known ulcerative colitis. s/p flex sig 10/17 without clear etiology of bleeding
-she was noted to have left renal and splenic infarcts by CT of the abdomen and pelvis. There is concern for cardioembolic source.
-she is tolerating IV heparin without noted recurrent BRBPR. transition to eliquis 5mg BID based on age <80 and Cr <1.5. hgb 12.5 on 10/18
-She remains in sinus rhythm on review of telemetry overnight. she did have a outpatient monitor 01/2023 which showed multiple brief episodes of atrial tachycardia however no clear A-fib or a flutter. Will place 2-week Bardy monitor prior to
discharge 10/18 to assist with determining duration of anticoagulation therapy as well as consideration for OP SANDRINE
-OP cardiac follow up arranged
-ok for DC from cardiac standpoint
-will plan to sign off
-d/w nursing
Progress Note - Farm Assistant
Subjective
Date of Service: October 18, 2024
denies CP, SOB, palpitations, abd pain, bloody BMs. does report continued diarrhea
Objective
Labs:
10/18/24 08:02
10/18/24 08:02
Labs
Hgb 12.5 g/dL (12.0-16.0) 10/18/24 08:02
Hct 36.6 % (37.0-47.0) L 10/18/24 08:02
Plt Count 298 10^3/uL (130-400) 10/18/24 08:02
PT 13.0 Sec (11.4-14.6) 10/15/24 11:43
INR 0.95 10/15/24 11:43
APTT Cancelled 10/18/24 13:15
Sodium 137 mmol/L (135-145) 10/18/24 08:02
Potassium 3.0 mmol/L (3.5-5.1) L 10/18/24 08:02
BUN 17 mg/dl (7-17) 10/18/24 08:02
Creatinine 0.7 mg/dL (0.6-1.0) 10/18/24 08:02
Glucose 101 mg/dl (70-99) H 10/18/24 08:02
Vital Signs and I&O:
Vital Signs
Temp Pulse Resp BP Pulse Ox
98.0 F 72 18 132/72 98
10/18/24 07:43 10/18/24 08:21 10/18/24 07:43 10/18/24 08:21 10/18/24 07:43
Vital Signs
Temp Pulse Resp BP Pulse Ox
98.0 F 72 18 132/72 98
10/18/24 07:43 10/18/24 08:21 10/18/24 07:43 10/18/24 08:21 10/18/24 07:43
Intake & Output
10/16/24 10/17/24 10/18/24 10/19/24
07:59 07:59 07:59 07:59
Intake Total 350 / 350 970 / 970 1440 / 1440 11.5 / 11.5
Balance 350 / 350 970 / 970 1440 / 1440 11.5 / 11.5
Physical Exam
Physical Exam
GEN: No distress, awake, alert, oriented x3
HEENT: supple, anicteric, mmm, eomi
LUNGS: CTA B/L, no wheezes/rales
CV: Reg, S1/S2, no murmur
ABD: soft, BS+, NT/ND
EXT: No cyanosis, clubbing, edema
NEURO: Gross non-focal
SKIN: Warm, pink, dry. No rash
[2024-10-18] MEDS: ENTOCORT EC 9 MG PO (09:33)
[2024-10-18] MEDS: KCL 40 MEQ PO (09:58)
[2024-10-18 11:22] VITALS: BP 142/68
--- NOTE | 2024-10-18 11:54 | W.DCSUMMARY ---
Documented by User: Brandie Thomas MD, Resident 10/18/24 15:43
Discharge Summary
Discharge Data
Date of Admission: 10/15/24
Date of Discharge: 10/18/24
-
Pending Results: No
Hospital Course
Discharging Physician : ,
Disposition : Home
Primary care physician : Marcos Gan
Principal Discharge diagnosis : Acute hematochezia/severe acute colitis/Ulcerative colitis flare
Chronic Discharge diagnosis : Essential hypertension
Chronic Rheumatoid arthritis
Incidental findings of Left Renal infarct and splenic infarct- possible paroxysmal A fib pending workup outpatient
Hospital Course : Patient is 79-year-old female with past medical history significant for hypertension and rheumatoid arthritis who presented to ED for evaluation of consistent diarrhea for 2.5 months and a bright red bowel movement. Patient had
CT abdomen was done which showed severe acute colitis, acute infarct in the lateral cortex of the lower pole of left kidney and splenic infarct. Gastroenterology was consulted, empiric antibiotics of IV Levaquin and Flagyl were started and patient
was maintained on a clears diet. She was started on IV steroids and was scheduled for flexible sigmoidoscopy with results leading to suspecting microscopic/lymphocytic colitis with biopsies still pending. Patient's diet was advanced and she
tolerated well. Patient endorsed hallucinations on prednisone and therefore was switched to desonide 9 mg daily and will follow-up with GI Dr. Che as outpatient to taper.
Due to incidental findings of infarct in left kidney and suspected spleen infarct, cardiology was consulted for atrial fibrillation evaluation and possible cardioembolic source. She was started on IV heparin post flex sigmoidoscopy and then
transition to oral anticoagulation as per cardiology recommendations. She was transition to Eliquis. She remained in sinus rhythm/sinus tachycardia on review of telemetry. Patient will follow-up with cardiology in 2 weeks for placement of monitor
for arrhythmia and further management.
Patient's other chronic comorbidities were stable and remained on home medications.
Important imaging findings :
10/15/2024 CT abdomen:
1. SEVERE ACUTE COLITIS in the ascending and transverse colon. Moderate acute on chronic colitis in the descending colon, sigmoid colon, and rectum. Diagnostic possibilities are (1) severe acute infectious colitis (possibly C. difficile colitis)
or (2) acute on chronic ulcerative colitis.
2. Cecal bascule without evidence for colonic obstruction.
3. Mild small bowel distention suggesting an ileus.
4. 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
5. Suspected acute infarct in the spleen.
6. Mild intrahepatic and extrahepatic biliary dilatation.
7. Previous cholecystectomy and hysterectomy.
8. 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
10/17/2024 peripheral vascular ultrasound lower extremities: No evidence of DVT
Procedure findings :
10/17/2024 flexible sigmoidoscopy:Ulcerative colitis. Inflammation was found from the
rectum to the descending colon. This was graded as
Logan Score 1 (mild disease), unchanged compared to
previous examinations. Biopsied.
Discharge Plan
-
Patient Disposition: Home (Routine Discharge)
Discharge Diagnosis/Procedures: Acute hematochezia/severe acute colitis/Ulcerative colitis flare
Essential hypertension
Chronic Rheumatoid arthritis
Incidental findings of Left Renal infarct and splenic infarct- possible paroxysmal A fib pending workup outpatient
Condition: Fair
Diet: Low Sodium
Activity: As tolerated
Driving Restrictions: As prior to admission
Blood Work: Check BMP in 1 week with Primary care physician
Others Tests: 2 week rn cardiac rehab to be placed prior to discharge
Referrals:
Roxanna Urbano PA-C [Specified Professional Personl] - 11/12/24 12:40 pm (You have a cardiology follow-up appointment at the [place] office with Dr. Murray's physician surgery assistant, Roxanna. Please call with questions)
Marcos Gan, DO [Family Provider] - in one week
Prescriptions:
New
budesonide 3 mg Capsule,Delayed,Extend.Release
9 mg PO DAILY 30 Days Qty: 90 0RF
Eliquis 5 mg Tablet
5 mg PO BID 30 Days Qty: 60 0RF
Continued
methotrexate sodium 2.5 MG tablet
10 mg PO TU
diclofenac sodium 75 MG tablet,delayed release (DR/EC)
75 mg PO BID
trazodone 50 mg Tablet
50 mg PO HSPRN PRN (Reason: sleep)
valsartan-hydrochlorothiazide 80-12.5 mg Tablet
0.5 tab PO DAILY
folic acid 1 mg Tablet
1 mg PO DAILY
Discharge Orders:
Discharge Patient (As Directed); Ordered 10/18/24
Ordered By: Brandie Thomas
Discharge Date and Time
Discharge Date/Time: 10/18/24 13:21
Print Language: SPANISH

Documented by User: Lana Deluna MD 10/18/24 22:01
Discharge Summary
Discharge Data
Date of Admission: 10/15/24
Date of Discharge: 10/18/24
Hospital Course
Discharging Physician : Dr.Kasarapu Familia
Disposition : Home
Primary care physician : Marcos Gan
Principal Discharge diagnosis : Acute hematochezia/severe acute colitis/Ulcerative colitis flare
Chronic Discharge diagnosis : Essential hypertension
Chronic Rheumatoid arthritis
Incidental findings of Left Renal infarct and splenic infarct- possible paroxysmal A fib pending workup outpatient
Hospital Course : Patient is 79-year-old female with past medical history significant for hypertension and rheumatoid arthritis who presented to ED for evaluation of persistent diarrhea new bright red bowel movement. Patient had CT abdomen done
which showed severe acute colitis which was felt likely due to acute on chronic ulcerative colitis. She was started on IV steroids but became confused so IV steroid was changed to PO. She was discharged with budesonide 9 mg and was instructed to
continue until further directed by her GI doctor.
She underwent flexible sigmoidoscopy with biopsy during this hospital stay.
Of note, her CT AP noted incidentally acute infarct in the lateral cortex of the lower pole of left kidney and splenic infarct. Cardiology was consulted for this for atrial fibrillation evaluation. She was started on IV heparin which was
transitioned to oral anticoagulation Eliquis per cardiology.
Patient can follow-up with cardiology in 2 weeks for monitor placement for arrhythmia eval.
Patient's other chronic comorbidities were stable.
Important imaging findings :
10/15/2024 CT abdomen:
1. SEVERE ACUTE COLITIS in the ascending and transverse colon. Moderate acute on chronic colitis in the descending colon, sigmoid colon, and rectum. Diagnostic possibilities are (1) severe acute infectious colitis (possibly C. difficile colitis)
or (2) acute on chronic ulcerative colitis.
2. Cecal bascule without evidence for colonic obstruction.
3. Mild small bowel distention suggesting an ileus.
4. 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
5. Suspected acute infarct in the spleen.
6. Mild intrahepatic and extrahepatic biliary dilatation.
7. Previous cholecystectomy and hysterectomy.
8. 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
10/17/2024 peripheral vascular ultrasound lower extremities: No evidence of DVT
Procedure findings :
10/17/2024 flexible sigmoidoscopy: Ulcerative colitis. Inflammation was found from the rectum to the descending colon.
Discharge Plan
-
Patient Disposition: Home (Routine Discharge)
Discharge Diagnosis/Procedures: Acute hematochezia/severe acute colitis/Ulcerative colitis flare
Essential hypertension
Chronic Rheumatoid arthritis
Incidental findings of Left Renal infarct and splenic infarct- possible paroxysmal A fib pending workup outpatient
Condition: Fair
Diet: Low Sodium
Activity: As tolerated
Driving Restrictions: As prior to admission
Blood Work: Check BMP in 1 week with Primary care physician
Others Tests: 2 week rn cardiac rehab to be placed prior to discharge
Referrals:
Roxanna Urbano PA-C [Specified Professional Personl] - 11/12/24 12:40 pm (You have a cardiology follow-up appointment at the [place] office with Dr. Murray's physician surgery assistant, Roxanna. Please call with questions)
Marcos Gan, DO [Family Provider] - in one week
Prescriptions:
New
budesonide 3 mg Capsule,Delayed,Extend.Release
9 mg PO DAILY 30 Days Qty: 90 0RF
Eliquis 5 mg Tablet
5 mg PO BID 30 Days Qty: 60 0RF
Continued
methotrexate sodium 2.5 MG tablet
10 mg PO TU
diclofenac sodium 75 MG tablet,delayed release (DR/EC)
75 mg PO BID
trazodone 50 mg Tablet
50 mg PO HSPRN PRN (Reason: sleep)
valsartan-hydrochlorothiazide 80-12.5 mg Tablet
0.5 tab PO DAILY
folic acid 1 mg Tablet
1 mg PO DAILY
Discharge Orders:
Discharge Patient (As Directed); Ordered 10/18/24
Ordered By: Brandie Thomas
Discharge Date and Time
Discharge Date/Time: 10/18/24 13:21
Print Language: SPANISH
[2024-10-18 17:01] LABS: Quantiferon Mitogen minus NIL 9.91 IU/mL; Quantiferon NIL 0.09 IU/mL; Quantiferon Plus TB1 minus NIL 0.01 IU/mL (<=0.34); Quantiferon TB Gold Plus Negative (Negative)
[2024-10-19 10:01] LABS: Cytomegalovirus by PCR Detected
[2024-10-19 10:17] LABS: HSV 1 Subtype by PCR Not Detected; HSV 2 Subtype by PCR Not Detected; Herpes Simplex Source Tissue
[2024-10-20 22:08] LABS: Calprotectin, Fecal 926 ug/g (<=49)
== END 2024-10-18 13:21 | disposition home or self-care (01) | DRG 378 ==
LOC: 1 ACUTE 18:24
PROVIDERS: Internal Medicine Gastroenterology; Nurse Practitioner Adult Health; Nurse Practitioner Family; Physician Assistant; Physician Assistant Medical; Student in an Organized Health Care Education/Training Program; ADMITTING PHYSICIAN Internal Medicine; ATTENDING PHYSICIAN Internal Medicine; EMERGENCY PHYSICIAN Emergency Medicine; FAMILY PHYSICIAN Family Medicine; OTHER PHYSICIAN Internal Medicine Interventional Cardiology; OTHER PHYSICIAN Specialist
PROC: 0DBN8ZX Excision of Sigmoid Colon, Via Natural or Artificial Opening Endoscopic, Diagnostic (ICD-10-PCS; 2024-10-17)
DX: K92.1 Melena (principal); K51.911 Ulcerative colitis, unspecified with rectal bleeding; K56.7 Ileus, unspecified; N28.0 Ischemia and infarction of kidney; Z87.891 Personal history of nicotine dependence; D73.5 Infarction of spleen; I10 Essential (primary) hypertension; M06.9 Rheumatoid arthritis, unspecified; I48.0 Paroxysmal atrial fibrillation; K21.9 Gastro-esophageal reflux disease without esophagitis; K57.30 Diverticulosis of large intestine without perforation or abscess without bleeding
CPT/HCPCS: 88305; 74177; 80048; 80053; 83605; 83690; 83993; 85025; 85027; 85610; 85652; 85730; 86140; 86480; 86704; 86705; 86706; 86803; 86850; 86900; 86901; 87045; 87046; 87324; 87328; 87329; 87340; 87427; 87449; 87496; 87529; 89055; 93005; 93306; 93970; 96360; 97161; 99285; Q9967

== ENCOUNTER → 2024-11-01 12:18 | Outpatient (REF) | payer MEDICARE, OTHER, SELFPAY ==
[2024-11-01 13:15] LABS: % Basophils 0.8 % (0-2); % Eosinophils 1.9 % (0-6); % Immature Granulocytes 0.3 % (0-0.5); % Lymphocytes 44.6 % (20.5-51.1); % Monocytes 4.5 % (1.7-9.3); % Neutrophils 47.9 % (42.2-75.2); Absolute Basophils 0.1 10^3/uL (0-0.2); Absolute Eosinophils 0.2 10^3/uL (0-0.7); Absolute Lymphocytes 4.3 10^3/uL (1.2-3.4); Absolute Monocytes 0.4 10^3/uL (0.1-0.6); Absolute Neutrophils 4.6 10^3/uL (1.4-6.5); Hematocrit 37.6 % (37.0-47.0); Hemoglobin 12.4 g/dL (12.0-16.0); Mean Corpuscular Hgb 32.1 pg (27.0-31.0); Mean Corpuscular Volume 97.4 fL (81.0-99.0); Mean Platelet Volume 9.9 fL (7.4-10.4); Nucleated Red Blood Cells % 0 %; Platelet Count 402 10^3/uL (130-400); Red Blood Cell Count 3.86 10^6/uL (4.20-5.40); Red Cell Dist. Width 14.5 % (11.5-14.5); White Blood Cell Count 9.6 10^3/uL (4.8-10.8)
== END ==
LOC: REG 12:18
PROVIDERS: ATTENDING PHYSICIAN Student in an Organized Health Care Education/Training Program; FAMILY PHYSICIAN Family Medicine
DX: B25.9 Cytomegaloviral disease, unspecified (principal)
CPT/HCPCS: 36415; 85025; 87497

== ENCOUNTER → 2024-11-05 15:03 | Outpatient (REF) | payer MEDICARE, OTHER, SELFPAY ==
[2024-11-05 16:04] LABS: ALT (SGPT) 17 U/L (0-35); AST (SGOT) 21 U/L (14-36); Alkaline Phosphatase 64 U/L (38-126); Blood Urea Nitrogen 21 mg/dl (7-17); Calcium 9.6 mg/dl (8.4-10.2); Carbon Dioxide 28 mmol/L (22-30); Chloride 100 mmol/L (98-107); Glucose 121 mg/dl (70-99); Potassium 4.7 mmol/L (3.5-5.1); Sodium 135 mmol/L (135-145); Total Bilirubin 0.4 mg/dl (0.2-1.3); Total Protein 6.5 g/dl (6.3-8.2); eGFR > 60.00
[2024-11-05 16:07] LABS: Hematocrit 36.5 % (37.0-47.0); Hemoglobin 12.3 g/dL (12.0-16.0); Mean Corp Hgb Conc. 33.7 g/dL (33.0-37.0); Mean Corpuscular Hgb 32.6 pg (27.0-31.0); Mean Corpuscular Volume 96.8 fL (81.0-99.0); Mean Platelet Volume 9.6 fL (7.4-10.4); Platelet Count 334 10^3/uL (130-400); Red Blood Cell Count 3.77 10^6/uL (4.20-5.40); Red Cell Dist. Width 15.1 % (11.5-14.5); White Blood Cell Count 9.6 10^3/uL (4.8-10.8)
[2024-11-05 16:32] LABS: % Eosinophils 4.1 % (0-6); % Immature Granulocytes 0.3 % (0-0.5); % Lymphocytes 48.6 % (20.5-51.1); % Monocytes 2.1 % (1.7-9.3); % Neutrophils 43.9 % (42.2-75.2); Absolute Basophils 0.1 10^3/uL (0-0.2); Absolute Eosinophils 0.4 10^3/uL (0-0.7); Absolute Lymphocytes 4.7 10^3/uL (1.2-3.4); Absolute Monocytes 0.2 10^3/uL (0.1-0.6); Absolute Neutrophils 4.2 10^3/uL (1.4-6.5); Nucleated Red Blood Cells % 0 %
[2024-11-08 06:06] LABS: CMV Qnt NAAT Plasma Log IU/mL Not Detected log IU/mL; CMV Quant NAAT Plasma Interp Not Detected (Not Detected); CMV Quant by NAAT Plasma IU/mL Not Detected
== END ==
LOC: REG 15:03
PROVIDERS: ATTENDING PHYSICIAN Student in an Organized Health Care Education/Training Program; FAMILY PHYSICIAN Family Medicine
DX: B25.9 Cytomegaloviral disease, unspecified (principal)
CPT/HCPCS: 36415; 80053; 85025; 87497

== ENCOUNTER → 2024-11-12 14:07 | Outpatient (REF) | payer MEDICARE, OTHER, SELFPAY ==
[2024-11-12 16:25] LABS: ALT (SGPT) 20 U/L (0-35); AST (SGOT) 23 U/L (14-36); Albumin 4.1 g/dl (3.5-5.0); Alkaline Phosphatase 72 U/L (38-126); Blood Urea Nitrogen 19 mg/dl (7-17); Calcium 9.3 mg/dl (8.4-10.2); Carbon Dioxide 28 mmol/L (22-30); Chloride 100 mmol/L (98-107); Glucose 137 mg/dl (70-99); Potassium 4.4 mmol/L (3.5-5.1); Sodium 134 mmol/L (135-145); Total Bilirubin 0.9 mg/dl (0.2-1.3); Total Protein 6.2 g/dl (6.3-8.2); eGFR > 60.00
[2024-11-12 16:33] LABS: % Basophils 0.6 % (0-2); % Eosinophils 1.5 % (0-6); % Immature Granulocytes 0.3 % (0-0.5); % Lymphocytes 46.6 % (20.5-51.1); % Monocytes 2.2 % (1.7-9.3); % Neutrophils 48.8 % (42.2-75.2); Absolute Basophils 0.1 10^3/uL (0-0.2); Absolute Eosinophils 0.1 10^3/uL (0-0.7); Absolute Lymphocytes 4.4 10^3/uL (1.2-3.4); Absolute Monocytes 0.2 10^3/uL (0.1-0.6); Absolute Neutrophils 4.6 10^3/uL (1.4-6.5); Hematocrit 35.8 % (37.0-47.0); Hemoglobin 12.1 g/dL (12.0-16.0); Mean Corp Hgb Conc. 33.8 g/dL (33.0-37.0); Mean Corpuscular Hgb 33.2 pg (27.0-31.0); Mean Corpuscular Volume 98.1 fL (81.0-99.0); Mean Platelet Volume 9.8 fL (7.4-10.4); Nucleated Red Blood Cells % 0 %; Platelet Count 268 10^3/uL (130-400); Red Blood Cell Count 3.65 10^6/uL (4.20-5.40); Red Cell Dist. Width 15.7 % (11.5-14.5); White Blood Cell Count 9.5 10^3/uL (4.8-10.8)
[2024-11-15 03:22] LABS: CMV Qnt NAAT Plasma Log IU/mL Not Detected log IU/mL; CMV Quant NAAT Plasma Interp Not Detected (Not Detected); CMV Quant by NAAT Plasma IU/mL Not Detected
== END ==
LOC: REG 14:07
PROVIDERS: ATTENDING PHYSICIAN Student in an Organized Health Care Education/Training Program; FAMILY PHYSICIAN Student in an Organized Health Care Education/Training Program
DX: B25.9 Cytomegaloviral disease, unspecified (principal)
CPT/HCPCS: 36415; 80053; 85025; 87497

== ENCOUNTER → 2024-11-21 12:29 | Outpatient (REF) | payer MEDICARE, OTHER, SELFPAY ==
[2024-11-21 14:15] LABS: % Basophils 0.8 % (0-2); % Eosinophils 1.2 % (0-6); % Immature Granulocytes 0.3 % (0-0.5); % Lymphocytes 39.9 % (20.5-51.1); % Monocytes 5.9 % (1.7-9.3); % Neutrophils 51.9 % (42.2-75.2); Absolute Basophils 0.1 10^3/uL (0-0.2); Absolute Eosinophils 0.1 10^3/uL (0-0.7); Absolute Lymphocytes 3.8 10^3/uL (1.2-3.4); Absolute Monocytes 0.6 10^3/uL (0.1-0.6); Hematocrit 41.2 % (37.0-47.0); Hemoglobin 13.5 g/dL (12.0-16.0); Mean Corp Hgb Conc. 32.8 g/dL (33.0-37.0); Mean Corpuscular Hgb 32.7 pg (27.0-31.0); Mean Corpuscular Volume 99.8 fL (81.0-99.0); Mean Platelet Volume 9.9 fL (7.4-10.4); Nucleated Red Blood Cells % 0 %; Platelet Count 323 10^3/uL (130-400); Red Blood Cell Count 4.13 10^6/uL (4.20-5.40); Red Cell Dist. Width 15.7 % (11.5-14.5); White Blood Cell Count 9.5 10^3/uL (4.8-10.8)
[2024-11-21 14:32] LABS: ALT (SGPT) 28 U/L (0-35); AST (SGOT) 29 U/L (14-36); Albumin 4.5 g/dl (3.5-5.0); Alkaline Phosphatase 77 U/L (38-126); Blood Urea Nitrogen 17 mg/dl (7-17); Calcium 9.8 mg/dl (8.4-10.2); Carbon Dioxide 29 mmol/L (22-30); Chloride 98 mmol/L (98-107); Glucose 102 mg/dl (70-99); Potassium 4.8 mmol/L (3.5-5.1); Sodium 135 mmol/L (135-145); Total Protein 6.8 g/dl (6.3-8.2); eGFR > 60.00
[2024-11-21 14:36] LABS: C-Reactive Protein < 5.00 mg/L (0.0-10.00)
[2024-11-24 08:44] LABS: Cardiolipin IgA Antibody <10 APL (<=11); Cardiolipin IgM Antibody 11 MPL (<=12); Cardiolipin Igg Antibody <10 GPL (<=14)
== END ==
LOC: REG 12:29
PROVIDERS: ATTENDING PHYSICIAN Internal Medicine Rheumatology; FAMILY PHYSICIAN Family Medicine
DX: M05.9 Rheumatoid arthritis with rheumatoid factor, unspecified (principal); Z51.81 Encounter for therapeutic drug level monitoring; A08.39 Other viral enteritis; B25.9 Cytomegaloviral disease, unspecified; D68.59 Other primary thrombophilia; K51.919 Ulcerative colitis, unspecified with unspecified complications; L29.9 Pruritus, unspecified; R74.01 Elevation of levels of liver transaminase levels
CPT/HCPCS: 36415; 80053; 85025; 86140; 86146; 86147

== ENCOUNTER → 2024-12-02 13:10 | Outpatient (REF) | payer MEDICARE, OTHER, SELFPAY ==
[2024-12-02 16:03] LABS: % Basophils 0.7 % (0-2); % Eosinophils 1.6 % (0-6); % Immature Granulocytes 0.5 % (0-0.5); % Lymphocytes 36.4 % (20.5-51.1); % Monocytes 6.2 % (1.7-9.3); % Neutrophils 54.6 % (42.2-75.2); Absolute Basophils 0.1 10^3/uL (0-0.2); Absolute Eosinophils 0.2 10^3/uL (0-0.7); Absolute Immature Granulocytes 0.1 10^3/uL (0-0.05); Absolute Lymphocytes 4.4 10^3/uL (1.2-3.4); Absolute Monocytes 0.7 10^3/uL (0.1-0.6); Absolute Neutrophils 6.6 10^3/uL (1.4-6.5); Hemoglobin 13.3 g/dL (12.0-16.0); Mean Corp Hgb Conc. 33.3 g/dL (33.0-37.0); Mean Corpuscular Hgb 33.1 pg (27.0-31.0); Mean Corpuscular Volume 99.5 fL (81.0-99.0); Mean Platelet Volume 10.1 fL (7.4-10.4); Nucleated Red Blood Cells % 0 %; Platelet Count 407 10^3/uL (130-400); Red Blood Cell Count 4.02 10^6/uL (4.20-5.40)
[2024-12-02 16:29] LABS: ALT (SGPT) 19 U/L (0-35); AST (SGOT) 25 U/L (14-36); Albumin 4.2 g/dl (3.5-5.0); Alkaline Phosphatase 70 U/L (38-126); Blood Urea Nitrogen 20 mg/dl (7-17); Calcium 9.8 mg/dl (8.4-10.2); Carbon Dioxide 22 mmol/L (22-30); Chloride 101 mmol/L (98-107); Glucose 92 mg/dl (70-99); Potassium 4.3 mmol/L (3.5-5.1); Sodium 132 mmol/L (135-145); Total Bilirubin 0.6 mg/dl (0.2-1.3); Total Protein 6.9 g/dl (6.3-8.2); eGFR > 60.00
[2024-12-04 23:34] LABS: CMV Qnt NAAT Plasma Log IU/mL Not Detected log IU/mL; CMV Quant NAAT Plasma Interp Not Detected (Not Detected); CMV Quant by NAAT Plasma IU/mL Not Detected
== END ==
LOC: RAD 13:10
PROVIDERS: ATTENDING PHYSICIAN Internal Medicine Rheumatology; FAMILY PHYSICIAN Family Medicine; OTHER PHYSICIAN Student in an Organized Health Care Education/Training Program
DX: M46.92 Unspecified inflammatory spondylopathy, cervical region (principal); B25.9 Cytomegaloviral disease, unspecified; J18.9 Pneumonia, unspecified organism
CPT/HCPCS: 36415; 72052; 80053; 85025; 87497

== ENCOUNTER → 2025-01-21 13:14 | Outpatient (REF) | payer MEDICARE, OTHER, SELFPAY ==
[2025-01-21 14:55] LABS: Hematocrit 40.3 % (37.0-47.0); Hemoglobin 13.7 g/dL (12.0-16.0); Mean Corpuscular Hgb 33.8 pg (27.0-31.0); Mean Corpuscular Volume 99.5 fL (81.0-99.0); Mean Platelet Volume 10.2 fL (7.4-10.4); Platelet Count 295 10^3/uL (130-400); Red Blood Cell Count 4.05 10^6/uL (4.20-5.40); Red Cell Dist. Width 13.9 % (11.5-14.5); White Blood Cell Count 10.6 10^3/uL (4.8-10.8)
[2025-01-21 15:24] LABS: % Basophils 0.9 % (0-2); % Eosinophils 1.8 % (0-6); % Immature Granulocytes 0.2 % (0-0.5); % Lymphocytes 52.5 % (20.5-51.1); % Neutrophils 34.6 % (42.2-75.2); Absolute Basophils 0.1 10^3/uL (0-0.2); Absolute Eosinophils 0.2 10^3/uL (0-0.7); Absolute Lymphocytes 5.5 10^3/uL (1.2-3.4); Absolute Monocytes 1.1 10^3/uL (0.1-0.6); Absolute Neutrophils 3.6 10^3/uL (1.4-6.5); Nucleated Red Blood Cells % 0 %
[2025-01-24 01:48] LABS: Beta-2-Glycoprotein I Ab. IgG <10 SGU (<=20); Beta-2-Glycoprotein I Ab. IgM <10 SMU (<=20)
[2025-01-24 08:21] LABS: Cardiolipin IgA Antibody <10 APL (<=11); Cardiolipin IgM Antibody <10 MPL (<=12); Cardiolipin Igg Antibody <10 GPL (<=14)
== END ==
LOC: REG 13:14
PROVIDERS: ATTENDING PHYSICIAN Internal Medicine Hematology & Oncology; FAMILY PHYSICIAN Family Medicine
DX: D73.5 Infarction of spleen (principal); Z83.2 Family history of diseases of the blood and blood-forming organs and certain disorders involving the immune mechanism; I82.91 Chronic embolism and thrombosis of unspecified vein
CPT/HCPCS: 36415; 81240; 81241; 85025; 85300; 85305; 85610; 85613; 85730; 86146; 86147

== ENCOUNTER → 2025-03-07 11:36 | Outpatient (REF) | payer MEDICARE, OTHER, SELFPAY ==
[2025-03-07 12:47] LABS: % Basophils 0.7 % (0-2); % Immature Granulocytes 0.2 % (0-0.5); % Lymphocytes 49.7 % (20.5-51.1); % Monocytes 10.3 % (1.7-9.3); % Neutrophils 37.1 % (42.2-75.2); Absolute Basophils 0.1 10^3/uL (0-0.2); Absolute Eosinophils 0.2 10^3/uL (0-0.7); Absolute Lymphocytes 4.8 10^3/uL (1.2-3.4); Absolute Neutrophils 3.6 10^3/uL (1.4-6.5); Hematocrit 40.3 % (37.0-47.0); Hemoglobin 13.5 g/dL (12.0-16.0); Mean Corp Hgb Conc. 33.5 g/dL (33.0-37.0); Mean Corpuscular Hgb 34.3 pg (27.0-31.0); Mean Corpuscular Volume 102.3 fL (81.0-99.0); Mean Platelet Volume 10.3 fL (7.4-10.4); Nucleated Red Blood Cells % 0 %; Platelet Count 285 10^3/uL (130-400); Red Blood Cell Count 3.94 10^6/uL (4.20-5.40); Red Cell Dist. Width 12.5 % (11.5-14.5); White Blood Cell Count 9.6 10^3/uL (4.8-10.8)
[2025-03-07 14:50] LABS: ALT (SGPT) 21 U/L (0-35); AST (SGOT) 25 U/L (14-36); Albumin 4.6 g/dl (3.5-5.0); Alkaline Phosphatase 61 U/L (38-126); Blood Urea Nitrogen 15 mg/dl (7-17); Calcium 9.9 mg/dl (8.4-10.2); Carbon Dioxide 29 mmol/L (22-30); Chloride 102 mmol/L (98-107); Glucose 96 mg/dl (70-99); Potassium 4.2 mmol/L (3.5-5.1); Sodium 139 mmol/L (135-145); Total Bilirubin 1.1 mg/dl (0.2-1.3); Total Protein 7.1 g/dl (6.3-8.2); eGFR > 60.00
[2025-03-07 14:59] LABS: C-Reactive Protein < 5.00 mg/L (0.0-10.00)
== END ==
LOC: REG 11:36
PROVIDERS: ATTENDING PHYSICIAN Physician Assistant; FAMILY PHYSICIAN Family Medicine
DX: M05.9 Rheumatoid arthritis with rheumatoid factor, unspecified (principal); Z51.81 Encounter for therapeutic drug level monitoring
CPT/HCPCS: 36415; 80053; 85025; 86140

== ENCOUNTER → 2025-07-15 09:37 | Outpatient (REF) | payer MEDICARE, OTHER, SELFPAY ==
[2025-07-15 10:58] LABS: Hematocrit 38.0 % (37.0-47.0); Hemoglobin 12.8 g/dL (12.0-16.0); Mean Corp Hgb Conc. 33.7 g/dL (33.0-37.0); Mean Corpuscular Volume 97.4 fL (81.0-99.0); Nucleated Red Blood Cells % 0 %; Platelet Count 315 10^3/uL (130-400); Red Cell Dist. Width 14.3 % (11.5-14.5)
[2025-07-15 11:45] LABS: C-Reactive Protein 11.60 mg/L (0.0-10.00)
[2025-07-15 11:48] LABS: ALT (SGPT) 22 U/L (0-35); AST (SGOT) 25 U/L (14-36); Albumin 4.2 g/dl (3.5-5.0); Alkaline Phosphatase 79 U/L (38-126); Blood Urea Nitrogen 16 mg/dl (7-17); Calcium 9.6 mg/dl (8.4-10.2); Carbon Dioxide 31 mmol/L (22-30); Chloride 100 mmol/L (98-107); Glucose 99 mg/dl (70-99); Potassium 4.3 mmol/L (3.5-5.1); Sodium 136 mmol/L (135-145); Total Protein 6.8 g/dl (6.3-8.2); eGFR > 60.00
== END ==
LOC: REG 09:37
PROVIDERS: ATTENDING PHYSICIAN Internal Medicine Rheumatology; FAMILY PHYSICIAN Family Medicine
DX: Z51.81 Encounter for therapeutic drug level monitoring (principal)
CPT/HCPCS: 36415; 80053; 85025; 86140

== ENCOUNTER 2025-07-27 17:00 | Emergency (ER) | payer MEDICARE, OTHER, SELFPAY ==
[2025-07-27 17:05] VITALS: BP 116/78
--- NOTE | 2025-07-27 19:25 | ED.MUSCINJ ---
HPI-Injury
General
Chief Complaint: Musculo-Skeletal Complaint
Source: patient and spouse
Exam Limitations: none
Time Seen by Provider: 07/27/25 19:20
Nursing documentation reviewed up to this point in time: agreed with
History of Present Illness-Injury
Is this injury a work related problem?: No
Initial Injury comments:
Note:
CHIEF COMPLAINT(S)
Hip pain.
HISTORY OF PRESENT ILLNESS
The patient is a 80-year-old female presenting with hip pain. She reported that the pains onset was recent, following a few steps which led to the suspicion of her hip being dislocated or injured. However, radiographic imaging was performed,
revealing no fractures or displacements. The pain is persistent and considerable, differing from her chronic pain history and is suspected to be due to severe osteoarthritis in the hip joint; this has led to the narrowing of the hip joint space.
The patient is concerned about managing pain due to underlying blood clots for which she is taking a medication named 'Eliquis' (Apixaban). She mentioned previous episodes of blood clots occurring in her kidneys and other areas. Due to her current
medication, pain management options are limited, and a cortisone injection was recommended but is not available in the emergency department.
The patient has a planned trip with the [employer], entailing potentially extensive walking, causing her additional concern about managing her hip pain during the trip.
PAST MEDICAL AND SURIGICAL HISTORY
The patient has significant past medical history including previous blood clots requiring lifelong anticoagulation therapy.
CHRONIC MEDICAL CONDITIONS SIGNIFICANTLY AFFECTING CARE
Chronic osteoarthritis of the hip.
SOCIAL DETERMINANTS AFFECTING HEALTH
The patient plans to participate in a [employer] trip, indicating potential mobility challenges due to her condition.
MEDICATIONS
The patient is currently taking Apixaban (Eliquis) for blood clots. She was previously on Gabapentin for pain management but is not taking it currently.
REVIEW OF SYSTEMS
- Musculoskeletal: Severe hip pain with suspicion of osteoarthritis.
- Hematologic: On chronic anticoagulation with Apixaban due to previous blood clot history.
PHYSICAL EXAM
General: Alert, no acute distress.
Skin: Warm, dry.
Head: Normocephalic, atraumatic.
Neck: Supple, trachea midline.
Eye Ears, nose, mouth and throat: Oral mucosa moist.
Cardiovascular: Normal peripheral perfusion, No edema.
Respiratory: Respirations are non-labored.
Gastrointestinal: Abdomen nondistended.
Back: Normal range of motion, Normal alignment.
Musculoskeletal: Noted severe arthritis in the hip with limited range of motion.
Neurological: Alert and oriented to person, place, time, and situation, No focal neurological deficit observed.
Psychiatric: Cooperative, appropriate mood & affect.
PROBLEM LIST
- Acute: Hip pain likely secondary to osteoarthritis.
- Chronic: Blood clot history requiring anticoagulation.
PLAN
- Provide a one-time dose of Gabapentin in the ER to help manage her hip pain.
- Advise follow-up with her orthopedics nurse for consideration of a cortisone injection or other pain management strategies.
- Consider potential hip replacement as a long-term solution due to narrowing of the joint space.
- Discuss and manage mobility concerns related to the upcoming trip, advising caution during extensive walking and travel activities.
DIFFERENTIAL DIAGNOSIS
The Differential Diagnosis includes, in no particular order and is not limited to:
1. Osteoarthritis flare
2. Trochanteric bursitis
3. Hip fracture (excluded by X-ray)
4. Acetabular dysplasia
5. Sacroiliitis
6. Gluteus medius tendinopathy
7. Iliopsoas tendonitis
8. Muscle strain or sprain
9. Referral pain from lower back or spine
10. Femoral neck stress fracture.
CARE-UPDATE
07/27/25 - 23:43
No fracture observed on NXA; moderate arthritis detected in the left hip joint. Plan to follow up with orthopedics under Dr. Robles for further evaluation and management.
Disposition:
SUMMARY OF ENCOUNTER
The patient, a 80-year-old female, was seen in the emergency department for hip pain. Radiographic imaging was conducted showing no fractures or dislocations; however, moderate arthritis was detected in the left hip joint. The pain is believed to be
due to an osteoarthritis flare. Due to her anticoagulation therapy with Apixaban, options for pain management were limited. A one-time dose of Gabapentin was administered to manage her hip pain. The patient expressed concern regarding an upcoming
[employer] trip and managing her pain during it, although potential gout was ruled out.
DISPOSITION
The patient was discharged with a plan to follow up with her orthopedics nurse.
ASSESSMENT
Left hip pain most likely due to osteoarthritis flare.
EMERGENCY TREATMENTS ADMINISTERED
Gabapentin was administered to manage her hip pain in the emergency department.
PLAN
The patient was advised to follow-up with her orthopedics nurse for further evaluation, potentially considering a cortisone injection or pain management strategies and possible hip replacement. The patient was cautioned about mobility during the
upcoming trip.
INDEPENDENT REVIEW OF LABS AND INTERPRETATION OF TESTS
My independent interpretation of the X-ray indicates no signs of fracture or dislocation and reveals moderate arthritis in the left hip joint.
MEDICATION RECONCILIATION
Gabapentin was administered in the emergency room.
MEDICAL DECISION MAKING
-Complexity of Data Reviewed: Chronic conditions affecting care include a history of blood clots requiring anticoagulation therapy and chronic osteoarthritis of the hip. Differential diagnoses considered were osteoarthritis flare, trochanteric
bursitis, acetabular dysplasia, sacroiliitis, gluteus medius tendinopathy, iliopsoas tendonitis, muscle strain or sprain, referral pain from lower back or spine, and femoral neck stress fracture.
-Data:
Category 1
The review of the patients outpatient records indicated that imaging showed no fracture or dislocation, supporting the diagnosis of osteoarthritis flare.
Category 3
Discussion of management with orthopedics nurse recommended for potential further interventions like cortisone injection or hip replacement.
-Risk:
Prescription medication was prescribed; Apixaban for blood clots and Gabapentin was administered for pain management. Care significantly affected by Social Determinants of Health due to her upcoming trip and mobility concerns.
DIAGNOSIS
Osteoarthritis of left hip causing pain (ICD-10: M16.9).
Past History
Past History
ED Past Medical History: GERD and Other (RA, sarcoidosis)
ED Past Surgical History: Cholecystectomy, Gynecological, Orthopedic and Other
Social History
Tobacco: Former smoker
Alcohol: None
Drug: None
Personal:
Living: with family
Employment: Retired
Family History
Family History: Other (brother had gout)
Phy Exam
Physical Exam
Physical Exam:
.
Injury Course
Orders/Labs/Results
Orders:
Orders
07/27/25 17:07
Hip, Left 2-3 Views [CR Hip - LT w/wo Pel 2-3 Vw*] Urgent
Comment:
Reason For Exam: pain
Include a pelvis x-ray?: Yes
07/27/25 19:41
Gabapentin [Neurontin] 200 mg PO STAT STA
*Pulse Oximetry
SaO2: 99
Oxygen Mode of Delivery: Room air
Patient hypoxic: no
*Critical Care Note
Total Time (30-74mins, 75-104mins- exclusive of procedures): Not Applicable
ED Attending Note
-
Portions of this chart may have been created with voice recognition software.� Occasional wrong word or��sound alike� substitutions may have occurred due to the inherent limitations of voice recognition software.
Discharge Plan
Departure
Patient Disposition: Home (Routine Discharge)
Date of Disposition: 07/27/25
Time of Disposition: 19:40
Patient with high blood pressure during this ER visit?: No
Condition: Good
Discharge Problem:
Acute pain of left hip
Instructions: Hip pain in adults
Prescriptions:
New
gabapentin 100 mg capsule
200 mg PO TID Qty: 60 0RF
No Action
methotrexate sodium 2.5 MG tablet
10 mg PO TU
diclofenac sodium 75 MG tablet,delayed release (DR/EC)
75 mg PO BID
trazodone 50 mg Tablet
50 mg PO HSPRN PRN (Reason: sleep)
valsartan-hydrochlorothiazide 80-12.5 mg Tablet
0.5 tab PO DAILY
folic acid 1 mg Tablet
1 mg PO DAILY
budesonide 3 mg Capsule,Delayed,Extend.Release
9 mg PO DAILY 30 Days Qty: 90 0RF
Eliquis 5 mg Tablet
5 mg PO BID 30 Days Qty: 60 0RF
Referrals:
Ephraim Varma MD [Active, Orthopedics] - Call in 1-3 days for appt
Yulisa Sosa DO [Family Provider, Family Practice]
Interventions
Interventions:
*Risk Screen - Suicide Last Done: 07/27/25 17:06
*General Assessment Last Done: 07/27/25 17:06
*Neglect/Abuse Screening Last Done: 07/27/25 17:06
*ED COVID-19 Vaccine History Last Done: 07/27/25 17:06
*ED Influenza Vaccine History Last Done: 07/27/25 17:06
*Nursing Disposition Last Done: 07/27/25 20:23
ED-Musculoskeletal Assessment Last Done: 07/27/25 20:23
Discharge Date and Time
Discharge Date/Time: 07/27/25 20:24
Print Language: UPPER SORBIAN
[2025-07-27] MEDS: NEURONTIN 200 MG PO (19:52)
== END 2025-07-27 20:24 | disposition home or self-care (01) ==
LOC: EMR 17:00
PROVIDERS: EMERGENCY PHYSICIAN Emergency Medicine; FAMILY PHYSICIAN Family Medicine
DX: M25.552 Pain in left hip (principal); M16.12 Unilateral primary osteoarthritis, left hip; Z86.718 Personal history of other venous thrombosis and embolism; Z79.01 Long term (current) use of anticoagulants; Z87.891 Personal history of nicotine dependence; M06.9 Rheumatoid arthritis, unspecified; Z90.49 Acquired absence of other specified parts of digestive tract
CPT/HCPCS: 99283; 73502

== ENCOUNTER → 2025-08-19 12:01 | Outpatient (REF) | payer MEDICARE, OTHER, SELFPAY | LOC: REG 12:01 | PROVIDERS: ATTENDING PHYSICIAN Specialist; FAMILY PHYSICIAN Family Medicine | DX: K51.00 Ulcerative (chronic) pancolitis without complications (principal) | CPT/HCPCS: 83993 ==

== ENCOUNTER → 2025-09-18 14:00 | Outpatient (REF) | payer MEDICARE, OTHER, SELFPAY | LOC: RAD 14:00 | PROVIDERS: ATTENDING PHYSICIAN Nurse Practitioner Family; FAMILY PHYSICIAN Family Medicine | DX: J32.9 Chronic sinusitis, unspecified (principal); R05.9 Cough, unspecified; R06.2 Wheezing | CPT/HCPCS: 71046 ==